=== PATIENT | male | born 1960 | race Caucasian/White ===

== ENCOUNTER 2016-11-20 19:54 | Inpatient (IN) ==
--- NOTE | 2016-11-20 20:09 | Emergency Department Note ---
Disposition Clinical Impression: Suicidal ideation Depression Qualifiers: Depression Type: major depressive disorder Major depression recurrence: recurrent Active/Remission status: currently active Major depression episode severity: unspecified Qualified Code(s): F33.9 - Major depressive disorder, recurrent, unspecified Disposition: Transfer Psychiatric Hosp Condition: Fair Referrals: NO,PCP [Primary Care Provider] - Forms: ED Satisfaction Letter Psych HPI - General Chief Complaint: ED Psychiatric Symptoms Stated Complaint: anxiety Time Seen by Provider: 11/20/16 19:58 Source: patient, EMS Nursing Notes Reviewed: Yes Vital Signs Reviewed: Yes - History of Present Illness HPI Narrative: 56-year-old male presents to the emergency department by ambulance with a complaint that he is just feeling a little anxious. Patient appears slightly agitated. He is very slow to answer questions. He appears to be having hallucinations however he denies any auditory or visual hallucinations. He denies any suicidal or homicidal ideation. He is oriented to person only. He is argumentative that today is the because it is the day after ther . When he was advised that today his accident the he states that I am wrong and he is right how can I even be a doctor if I do not know the date. He denies any physical complaints and just keeps stating that he just feels a little anxious. He apparently has a long history of psychiatric issues. Pt complaint: anxiety If medical clearance, reason: psychiatric condition Onset (ago): unknown History of similar episodes: Yes Associated Psychiatric Symptoms: anxiety Associated symptoms: Reports: denies other symptoms Traumatic symptoms: denies traumatic injury Treatments prior to arrival: none - Related Data Previous Rx's Medication Instructions Recorded Carbamide Peroxide 5 - 10 drop LEFT EAR BID #1 unit 03/11/16 Ibuprofen [Motrin] 600 mg PO Q6-8H PRN #30 tab 03/11/16 Sulfamethoxazole/Trimeth DS 1 each PO BID #20 tablet 03/15/16 [Bactrim Ds] ClonazePAM [Klonopin] 0.5 mg PO BID #60 tablet 05/10/16 RisperiDONE [RisperDAL] 1.5 mg PO BID #90 tablet 05/10/16 Allergies Allergy/AdvReac Type Severity Reaction Status Date / Time No Known Allergies Allergy Verified 05/03/16 12:07 Limitations: ROS unobtainable due to patients medical condition Past Medical History - Past Medical History Medical history: Reports: non-contributory Surgical history: Reports: other Psychiatric history: Reports: anxiety, bipolar, depression, panic disorder - Social History Smoking Status: Never smoker Smokeless Tobacco Status: No Alcohol use: Reports: none Drug use: Reports: cocaine, marijuana Physical Exam - General Limitations: no limitations General appearance: alert, anxious - Head Head exam: atraumatic, normocephalic - Eye Eye exam: Present: normal appearance, PERRL. Absent: scleral icterus, conjunctival injection - ENT ENT exam: normal exam, normal oropharynx, mucous membranes moist - Neck Neck exam: Present: normal inspection, full ROM, trachea midline - Chest Chest inspection: Present: normal inspection, symmetric chest wall rise. Absent : tenderness - Respiratory Respiratory exam: Present: normal lung sounds bilaterally. Absent: respiratory distress - Cardiovascular Cardiovascular exam: Present: regular rate, normal rhythm, normal heart sounds - Abdominal Exam Abdominal exam: Present: soft, Non-Tender, normal bowel sounds - Extremities Exam Extremities exam: Present: normal inspection, full ROM. Absent: tenderness, pedal edema - Back Exam Back exam: Present: normal inspection. Absent: CVA tenderness (R), CVA tenderness (L) - Neurological Exam Neurological exam: Present: alert. Absent: oriented X3 (Oriented to person only.), motor sensory deficit - Psychiatric Psychiatric exam: Present: agitated, anxious, flat affect - Skin Skin exam: Present: warm, dry, intact, normal color. Absent: cyanosis, diaphoresis Course Course Narrative: 56-year-old male with history of psychiatric issues presents complaining of "a lot of anxiety". Denies suicidal or homicidal ideation. He denies hallucinations but clinically appears to be hallucinating. I am giving patient 1 mg of Ativan IV and we will obtain labs for psychiatric clearance and then consult the psychiatry service. - Reevaluation(s) Reevaluation #1: Patient has been seen and evaluated by the [facility] psych service and they are currently working on placement for this patient to be transferred since there are no beds available currently at this facility. Patient was discussed with the oncmarcelo trivedihizulema, Dr. Webster and Dr. Duran , at shift change but charting has been completed and they should not have to have any interaction with this patient unless there is a change in disposition or condition. Vital Signs Temperature 98.7 F 11/20/16 19:57 Pulse Rate 69 11/20/16 19:57 Respiratory Rate 16 11/20/16 19:57 Blood Pressure 139/90 11/20/16 19:57 O2 Sat by Pulse Oximetry 96 11/20/16 19:57 Temperature 98.7 F 11/20/16 19:57 Pulse Rate 76 11/21/16 06:47 Respiratory Rate 18 11/21/16 06:47 Blood Pressure 120/69 11/21/16 06:47 O2 Sat by Pulse Oximetry 96 11/21/16 06:47 Oxygen Delivery Oxygen Delivery Room Air Psych - MDM Narrative Medical decision making narrative: 56-year-old male with history of psychiatric issues presents complaining of "a lot of anxiety". Denies suicidal or homicidal ideation. He denies hallucinations but clinically appears to be hallucinating. I am giving patient 1 mg of Ativan IV and we will obtain labs for psychiatric clearance and then consult the psychiatry service. - Lab Data Result diagrams: 11/20/16 20:35 11/20/16 20:35 Lab Results 11/20/16 11/20/16 11/20/16 Range/Units 20:10 20:11 20:35 WBC 8.4 (4.3-11.1) K/mcL RBC 4.01 L (4.19-5.50) M/mcL Hgb 11.9 L (12.9-16.9) g/dL Hct 36.1 L (37.5-50.1) % MCV 90.0 (83.0-100.0) fL MCH 29.7 (28.0-33.3) pg MCHC 33.0 (31.6-35.5) g/dL RDW 13.1 (11.5-14.5) % Plt Count 314 (140-400) K/mcL MPV 8.7 L (9.4-12.4) fL Immature Gran % 0.4 (0-4) % Seg Neutrophils % 66.2 % Lymphocytes % 23.2 % Monocytes % 8.6 % Eosinophils % 1.2 % Basophils % 0.4 % Neutrophils # 5.6 (1.6-8.9) K/mcL Lymphocytes # 2.0 (0.6-4.6) K/mcL Monocytes # 0.7 (0.0-1.3) K/mcL Eosinophils # 0.1 (0.0-0.6) K/mcL Basophils # 0.0 (0.0-0.2) K/mcL Sodium (136-145) mEq/L Potassium (3.5-4.5) mEq/L Chloride (98-109) mEq/L Carbon Dioxide (19-29) mEq/L BUN (8-26) mg/dL Creatinine (0.72-1.25) mg/dL Est GFR ( Amer) (> 60) Est GFR (Non-Af Amer) (> 60) BUN/Creatinine Ratio (6-26) Glucose (70-99) mg/dL Calculated Osmolality (280-300) Calcium (8.6-10.8) mg/dL TSH (0.350-4.840) mcIU/mL Urine Color Yellow (Yellow) Urine Clarity Clear (Clear) Urine pH 6.0 (5.0-8.0) pH Units Ur Specific [place] 1.008 L (1.010-1.025) Urine Protein Negative (Neg-Trace) mg/dL Urine Glucose (UA) Normal (Normal) mg/dL Urine Ketones Negative (Negative) mg/dL Urine Blood Negative (Negative) Urine Nitrite Negative (Negative) Urine Bilirubin Negative (Negative) Urine Urobilinogen Normal (Normal) mg/dL Ur Leukocyte Esterase Negative (Negative) Salicylates (15-30) mg/dL Urine Opiates Screen Negative (Itrdwm=758) ng/mL Acetaminophen (10-30) mcg/mL Ur Barbiturates Screen Negative (Yegcsb=473) ng/mL Ur Phencyclidine Scrn Negative (Cutoff=25) ng/mL Ur Amphetamines Screen Negative (Plhqtl=5693) ng/mL U Benzodiazepines Scrn Negative (Orpdoh=300) ng/mL Urine Cocaine Screen Negative (Cutoff= 300) ng/mL U Marijuana (THC) Screen Negative (Cutoff = 50) ng/mL Ethyl Alcohol (0-10) mg/dL 11/20/16 Range/Units 20:35 WBC (4.3-11.1) K/mcL RBC (4.19-5.50) M/mcL Hgb (12.9-16.9) g/dL Hct (37.5-50.1) % MCV (83.0-100.0) fL MCH (28.0-33.3) pg MCHC (31.6-35.5) g/dL RDW (11.5-14.5) % Plt Count (140-400) K/mcL MPV (9.4-12.4) fL Immature Gran % (0-4) % Seg Neutrophils % % Lymphocytes % % Monocytes % % Eosinophils % % Basophils % % Neutrophils # (1.6-8.9) K/mcL Lymphocytes # (0.6-4.6) K/mcL Monocytes # (0.0-1.3) K/mcL Eosinophils # (0.0-0.6) K/mcL Basophils # (0.0-0.2) K/mcL Sodium 142 (136-145) mEq/L Potassium 2.4 L* (3.5-4.5) mEq/L Chloride 103 (98-109) mEq/L Carbon Dioxide 29 (19-29) mEq/L BUN 4 L (8-26) mg/dL Creatinine 0.81 (0.72-1.25) mg/dL Est GFR ( Amer) > 60 (> 60) Est GFR (Non-Af Amer) > 60 (> 60) BUN/Creatinine Ratio 5 L (6-26) Glucose 121 H (70-99) mg/dL Calculated Osmolality 292 (280-300) Calcium 9.3 (8.6-10.8) mg/dL TSH 1.729 (0.350-4.840) mcIU/mL Urine Color (Yellow) Urine Clarity (Clear) Urine pH (5.0-8.0) pH Units Ur Specific [place] (1.010-1.025) Urine Protein (Neg-Trace) mg/dL Urine Glucose (UA) (Normal) mg/dL Urine Ketones (Negative) mg/dL Urine Blood (Negative) Urine Nitrite (Negative) Urine Bilirubin (Negative) Urine Urobilinogen (Normal) mg/dL Ur Leukocyte Esterase (Negative) Salicylates < 5.0 L (15-30) mg/dL Urine Opiates Screen (Tktmfa=744) ng/mL Acetaminophen < 1.0 L (10-30) mcg/mL Ur Barbiturates Screen (Vwmjsj=496) ng/mL Ur Phencyclidine Scrn (Cutoff=25) ng/mL Ur Amphetamines Screen (Aschxd=3908) ng/mL U Benzodiazepines Scrn (Smsdlb=191) ng/mL Urine Cocaine Screen (Cutoff= 300) ng/mL U Marijuana (THC) Screen (Cutoff = 50) ng/mL Ethyl Alcohol < 10 (0-10) mg/dL Psychiatric Medical Clearance - Medical Clearance Checklist Does the patient have a NEW psychiatric condition?: No Any abnormalities indicating possible medical illness?: No Any history of medical issues?: No Medical History: No Social History Section defined Any abnormal vital signs prior to transfer?: No Current Vitals: Last Vital Signs Temp 98.7 F 11/20/16 19:57 Pulse 76 11/21/16 06:47 Resp 18 11/21/16 06:47 BP 120/69 11/21/16 06:47 Pulse Ox 96 11/21/16 06:47 Is the patient intoxicated or cognitively impaired?: No Psychiatric Lab Panel: Drug Levels and Toxicity 11/20/16 11/20/16 20:10 20:35 Urine Opiates Screen Negative Acetaminophen < 1.0 L Ur Barbiturates Screen Negative Ur Phencyclidine Scrn Negative Ur Amphetamines Screen Negative U Benzodiazepines Scrn Negative Urine Cocaine Screen Negative U Marijuana (THC) Screen Negative Ethyl Alcohol < 10 Any abnormalities on the physical exam?: No Any abnormal labs?: Yes (Low potassium. Patient was given oral potassium here in the ED.) Abnormal Labs: Abnormal lab results RBC 4.01 M/mcL (4.19-5.50) L 11/20/16 20:35 Hgb 11.9 g/dL (12.9-16.9) L 11/20/16 20:35 Hct 36.1 % (37.5-50.1) L 11/20/16 20:35 MPV 8.7 fL (9.4-12.4) L 11/20/16 20:35 Potassium 2.4 mEq/L (3.5-4.5) L* 11/20/16 20:35 BUN 4 mg/dL (8-26) L 11/20/16 20:35 BUN/Creatinine Ratio 5 (6-26) L 11/20/16 20:35 Glucose 121 mg/dL (70-99) H 11/20/16 20:35 Ur Specific [place] 1.008 (1.010-1.025) L 11/20/16 20:11 Salicylates < 5.0 mg/dL (15-30) L 11/20/16 20:35 Acetaminophen < 1.0 mcg/mL (10-30) L 11/20/16 20:35 Does the patient require durable medical equiptment?: No Is the patient ambulatory?: Yes Is the patient a fall risk?: No Has the patient been medically cleared?: Yes Any acute medical condition require Tx prior to transfer?: No Statement of Medical Clearance: I have evaluated the patient, reviewed diagnostic information, and certify that the patient's medical condition is sufficiently stable that transfer to the psychiatric unit does not pose a significant risk of deterioration.
[2016-11-20 20:18] LABS: Bilirubin,Urine Negative (Negative); Blood,Urine Negative (Negative); Clarity,Urine Clear (Clear); Color,Urine Yellow (Yellow); Glucose,Urine (UA) Normal (Normal); Ketones,Urine Negative (Negative); Leukocyte Esterase,Urine Negative (Negative); Nitrite,Urine Negative (Negative); Protein,Urine Negative (Neg-Trace); Specific Gravity,Urine 1.008 (1.010-1.025); Urobilinogen,Urine Normal (Normal)
[2016-11-20 20:24] LABS: Amphetamine Screen,Urine Negative ng/mL (Cutoff=1000); Barbiturate Screen,Urine Negative ng/mL (Cutoff=200); Benzodiazepines Screen,Urine Negative ng/mL (Cutoff=200); Cannabinoid Screen,Urine Negative ng/mL (Cutoff = 50); Cocaine Screen,Urine Negative ng/mL (Cutoff= 300); Opiate Screen,Urine Negative ng/mL (Cutoff=300); Phencyclidine Screen,Urine Negative ng/mL (Cutoff=25)
[2016-11-20] MEDS ORDERED: *HR* LORazepam 2 MG/ML VIAL ONE (20:39)
[2016-11-20 20:42] LABS: Basophils % 0.4 %; Eosinophils # 0.1 K/mcL (0.0-0.6); Eosinophils % 1.2 %; Hematocrit 36.1 % (37.5-50.1); Hemoglobin 11.9 g/dL (12.9-16.9); Immature Granulocytes % 0.4 % (0-4); Lymphocytes % 23.2 %; Mean Corpuscular Hemoglobin 29.7 pg (28.0-33.3); Mean Platelet Volume 8.7 fL (9.4-12.4); Monocytes # 0.7 K/mcL (0.0-1.3); Monocytes % 8.6 %; Neutrophils # 5.6 K/mcL (1.6-8.9); Platelet Count 314 K/mcL (140-400); Red Blood Count 4.01 M/mcL (4.19-5.50); Red Cell Distribution Width 13.1 % (11.5-14.5); Segmented Neutrophils % 66.2 %
[2016-11-20] MEDS ORDERED: *HR* LORazepam 2 MG/ML VIAL IVP ONE (20:42)
[2016-11-20 20:57] LABS: BUN/Creatinine Ratio 5 (6-26); Calcium 9.3 mg/dL (8.6-10.8); Carbon Dioxide 29 mEq/L (19-29); Chloride 103 mEq/L (98-109); Glucose 121 mg/dL (70-99); Osmolality,Calculated 292 (280-300); Sodium 142 mEq/L (136-145); eGFR For African Americans > 60 (> 60); eGFR For Non-African Americans > 60 (> 60)
[2016-11-20 20:58] LABS: Acetaminophen < 1.0 mcg/mL (10-30); Blood Urea Nitrogen 4 mg/dL (8-26); Ethanol < 10 mg/dL (0-10); Salicylate < 5.0 mg/dL (15-30)
[2016-11-20 21:00] LABS: Potassium 2.4 mEq/L (3.5-4.5)
[2016-11-20 21:17] LABS: Thyroid Stimulating Hormone 1.729 mcIU/mL (0.350-4.840)
[2016-11-21] MEDS ORDERED: *HR* LORazepam 1 MG TABLET PO ONE ×4 (05:01→16:03)
[2016-11-21] MEDS ORDERED: Haloperidol Lactate 5 MG/ML VIAL IM PRN (17:41)
[2016-11-21] MEDS ORDERED: hydrOXYzine pamoate 25 MG CAPSULE PO PRN (17:41)
[2016-11-21] MEDS ORDERED: *HR* LORazepam 2 MG/ML VIAL IM PRN (17:41)
[2016-11-21] MEDS ORDERED: Ibuprofen 400 MG TABLET PO PRN (17:41)
[2016-11-21] MEDS: *HR* LORazepam 1 MG TABLET PO PRN (18:21)
[2016-11-21] MEDS: clonazePAM 0.5 MG TABLET PO SCH (21:40)
--- NOTE | 2016-11-22 06:30 | Electrocardiograph Report ---
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
[2016-11-22] MEDS: clonazePAM 0.5 MG TABLET PO SCH ×2 (09:30→21:02)
--- NOTE | 2016-11-22 11:58 | Psychiatry History & Physical ---
Date of Encounter: 11/21/14 Time of Encounter: 13:00 History of Present Illness Patient Stated Chief Complaint: anxiety Medicare Admission Attestation: For traditional Medicare patients the provided hospital inpatient services are reasonable and necessary and in the case of services not specified as inpatient -only under 42 CFR 419.22 (n), that they are appropriately provided as inpatient services in accordance 42 CFR 412.3. For Critical Access Hospital the patient may reasonably be expected to be discharged or transferred to a hospital within 96 hours after admission to the Critical Access Hospital. Admitted From: Emergency Dept History of Present Illness: Mr. Robert is a 56 year old male with a history of bipolar disorder and cocaine use and an anxiety disorder presented to emergency room was agitation and anxiety and refused to be seen in our interview went for evaluation. Past Med Surg Social Fam HX - Past Medical History Medical history: non-contributory - Past Psychiatric History Psychiatric history: Reports: anxiety, bipolar, previous psychiatric hospitalization Family psychiatric history: Unknown Family History of Suicide: Unknown - Past Surgical History Surgical History: other - Social History Smoking Status: Never smoker Smokeless Tobacco Status: No Alcohol use: none Drug use: cocaine, marijuana Medications & Allergies Carbamide Peroxide 5 - 10 drop LEFT EAR BID #1 unit 03/11/16 [Rx] Ibuprofen [Motrin] 600 mg PO Q6-8H PRN #30 tab 03/11/16 [Rx] Sulfamethoxazole/Trimeth DS [Bactrim Ds] 1 each PO BID #20 tablet 03/15/16 [Rx] ClonazePAM [Klonopin] 0.5 mg PO BID #60 tablet 05/10/16 [Rx] RisperiDONE [RisperDAL] 1.5 mg PO BID #90 tablet 05/10/16 [Rx] Allergies animal dander Allergy (Verified 12/03/16 13:10) Itching pollen extracts Allergy (Verified 12/03/16 13:10) Watery Eye decanoate preparations Adverse Reaction (Severe, Uncoded 12/03/16 11:04) Difficulty Breathing Pt is able to take oral and IM Haldol without difficulty, however the prepartations in the Haldol Decanoate presents an adverse reaction of difficulty in breathing. Review of Systems Psychiatric: Reports: anxiety, irritability Mental Status Exam Additional observations: Patient refused to be interviewed. Intelligence estimate: Average Results - Vital Signs Vital signs: Temp Pulse Resp BP Pulse Ox 98.4 F 88 16 128/82 97 11/21/16 21:00 11/21/16 21:00 11/21/16 21:00 11/21/16 21:00 11/21/16 16:08 - Labs Labs: Laboratory Last Values WBC 8.4 K/mcL (4.3-11.1) 11/20/16 20:35 RBC 4.01 M/mcL (4.19-5.50) L 11/20/16 20:35 Hgb 11.9 g/dL (12.9-16.9) L 11/20/16 20:35 Hct 36.1 % (37.5-50.1) L 11/20/16 20:35 MCV 90.0 fL (83.0-100.0) 11/20/16 20:35 MCH 29.7 pg (28.0-33.3) 11/20/16 20:35 MCHC 33.0 g/dL (31.6-35.5) 11/20/16 20:35 RDW 13.1 % (11.5-14.5) 11/20/16 20:35 Plt Count 314 K/mcL (140-400) 11/20/16 20:35 MPV 8.7 fL (9.4-12.4) L 11/20/16 20:35 Immature Gran % 0.4 % (0-4) 11/20/16 20:35 Seg Neutrophils % 66.2 % 11/20/16 20:35 Lymphocytes % 23.2 % 11/20/16 20:35 Monocytes % 8.6 % 11/20/16 20:35 Eosinophils % 1.2 % 11/20/16 20:35 Basophils % 0.4 % 11/20/16 20:35 Neutrophils # 5.6 K/mcL (1.6-8.9) 11/20/16 20:35 Lymphocytes # 2.0 K/mcL (0.6-4.6) 11/20/16 20:35 Monocytes # 0.7 K/mcL (0.0-1.3) 11/20/16 20:35 Eosinophils # 0.1 K/mcL (0.0-0.6) 11/20/16 20:35 Basophils # 0.0 K/mcL (0.0-0.2) 11/20/16 20:35 Sodium 142 mEq/L (136-145) 11/20/16 20:35 Potassium 2.4 mEq/L (3.5-4.5) L* 11/20/16 20:35 Chloride 103 mEq/L (98-109) 11/20/16 20:35 Carbon Dioxide 29 mEq/L (19-29) 11/20/16 20:35 BUN 4 mg/dL (8-26) L 11/20/16 20:35 Creatinine 0.81 mg/dL (0.72-1.25) 11/20/16 20:35 Est GFR ( Amer) > 60 (> 60) 11/20/16 20:35 Est GFR (Non-Af Amer) > 60 (> 60) 11/20/16 20:35 BUN/Creatinine Ratio 5 (6-26) L 11/20/16 20:35 Glucose 121 mg/dL (70-99) H 11/20/16 20:35 Calculated Osmolality 292 (280-300) 11/20/16 20:35 Calcium 9.3 mg/dL (8.6-10.8) 11/20/16 20:35 TSH 1.729 mcIU/mL (0.350-4.840) 11/20/16 20:35 Urine Color Yellow (Yellow) 11/20/16 20:11 Urine Clarity Clear (Clear) 11/20/16 20:11 Urine pH 6.0 pH Units (5.0-8.0) 11/20/16 20:11 Ur Specific [place] 1.008 (1.010-1.025) L 11/20/16 20:11 Urine Protein Negative mg/dL (Neg-Trace) 11/20/16 20:11 Urine Glucose (UA) Normal mg/dL (Normal) 11/20/16 20:11 Urine Ketones Negative mg/dL (Negative) 11/20/16 20:11 Urine Blood Negative (Negative) 11/20/16 20:11 Urine Nitrite Negative (Negative) 11/20/16 20:11 Urine Bilirubin Negative (Negative) 11/20/16 20:11 Urine Urobilinogen Normal mg/dL (Normal) 11/20/16 20:11 Ur Leukocyte Esterase Negative (Negative) 11/20/16 20:11 Salicylates < 5.0 mg/dL (15-30) L 11/20/16 20:35 Urine Opiates Screen Negative ng/mL (Vywfvz=327) 11/20/16 20:10 Acetaminophen < 1.0 mcg/mL (10-30) L 11/20/16 20:35 Ur Barbiturates Screen Negative ng/mL (Nqsdos=960) 11/20/16 20:10 Ur Phencyclidine Scrn Negative ng/mL (Cutoff=25) 11/20/16 20:10 Ur Amphetamines Screen Negative ng/mL (Xctqog=4337) 11/20/16 20:10 U Benzodiazepines Scrn Negative ng/mL (Txkeuo=504) 11/20/16 20:10 Urine Cocaine Screen Negative ng/mL (Cutoff= 300) 11/20/16 20:10 U Marijuana (THC) Screen Negative ng/mL (Cutoff = 50) 11/20/16 20:10 Ethyl Alcohol < 10 mg/dL (0-10) 11/20/16 20:35 Assessment and Plan (1) Bipolar disorder with psychotic features Current visit: Yes Status: Chronic Plan: Admit inpatient for safety and stabilization, Close observation, Suicide Precautions per unit protocol, Encourage participation in unit milieu, Group Therapy, Monitor sleep, Monitor appetite Risks, benefits, side effects, alternatives discussed w/pt: No (refused) Patient agreeable to treatment: No ( refused)
[2016-11-23] MEDS: clonazePAM 0.5 MG TABLET PO SCH ×2 (09:00→20:26)
[2016-11-23] MEDS: *HR* LORazepam 1 MG TABLET PO PRN ×2 (14:59→19:09)
--- NOTE | 2016-11-23 20:35 | Psychiatry Progress Note ---
Date of Encounter: 11/23/16 Time of Encounter: 14:45 Subjective Interval history: Patient asks me what I want when I approach him. He tells me that he does not think I can help him with his situation, "There are illegal activities going on in this town. People are wired and others are listening in." Tried to discuss with him medications that he has ordered that would help with his mood and paranoia. He is not willing to take any Haldol, but is willing to take Ativan which is warranted to decrease his anxiety and agitation that is putting him at risk of escalating and intrusion into other patients on the unit and aggressive verbal confrontations with staff. I tried to discuss the use of Zyprexa or Seroquel which would help with his agitation and anxiety and also decrease his paranoia and psychosis potentially. He refuses to consider. Review of Systems Psychiatric: Reports: anxiety, abnormal sleep pattern, difficulty concentrating , irritability, mood swings Objective: Exam Patient orientation: Yes Person, Yes Place Level of alertness: Other (He is alert and hypervigilant on the unit. ) Patient appearance: Unkempt, Disheveled, Inappropriate, Bizarre Behavior: anxious, agitated, guarded, suspicious, fearful Psychomotor activity: Agitated Eye contact: Fleeting Contact Mood description: Anxious, Elevated, Irritable Affect description: labile Speech pattern: Rambling, Other (angry tone) Speech volume: Loud Thought process: Tangential, Flight of Ideas, Disorganized Thought content: Yes Ideas of reference, Yes Paranoid delusion Perceptual disturbances: Yes Reacting to internal stimuli (? Denies Auditory Hallucinations) Judgment: Poor Insight: Minimal (Feels he has issues with anxiety and only needs Ativan to help him with his situation) Results - Vital Signs Vital Signs: Temp Pulse Resp BP Pulse Ox 99.1 F 74 24 119/80 97 11/23/16 19:51 11/23/16 19:51 11/23/16 19:51 11/23/16 19:51 11/21/16 16:08 Assessment and Plan (1) Bipolar disorder with psychotic features Current visit: Yes Status: Chronic Plan: Continue hospitalization, Close observation, Monitor sleep, Monitor appetite Risks, benefits, side effects, alternatives discussed w/pt: Yes ( refused) Patient agreeable to treatment: No (refused) Consult Discharge Plan - Plan Referrals: NO,PCP [Primary Care Provider] -
[2016-11-24] MEDS: *HR* LORazepam 1 MG TABLET PO PRN ×2 (03:59→16:01)
[2016-11-24] MEDS: clonazePAM 0.5 MG TABLET PO SCH ×2 (09:25→22:15)
--- NOTE | 2016-11-24 12:30 | Psychiatry Progress Note ---
Date of Encounter: 11/24/16 Time of Encounter: 11:20 Subjective Interval history: Patient was unwilling to speak to me today. He has been taking Ativan PRN, at times on his own and at other times with staff encouragement. He has been observed screaming, yelling and threatening his mother on the phone. Pacing up and down the [place] sporadically. He refused vitals this morning, but came out to eat breakfast. I tried to talk to him about signing in voluntary versus probate paperwork. He would not talk about it. He remained in bed with his head covered by his blanket and did not acknowledge that I was there talking to him. His feet were taping at the edge of the bed the whole time I was in the room. He would not say anything to me. Paperwork is being filed today with the Probate courts for his continued stay and hearing request. He is at the end of his 72 hour involuntary hold and he is not stable to be released. Review of Systems Psychiatric: Reports: anxiety, abnormal sleep pattern, difficulty concentrating , irritability, mood swings Objective: Exam Patient orientation: Yes Person, Yes Place Level of alertness: Other (He is alert and hypervigilant on the unit. ) Patient appearance: Unkempt, Disheveled, Inappropriate, Bizarre Behavior: anxious, agitated, guarded, suspicious, fearful Psychomotor activity: Agitated Eye contact: No Eye Contact Mood description: Anxious, Elevated, Irritable Affect description: labile Speech pattern: Non-verbal Speech volume: No speech Thought process: Tangential, Flight of Ideas, Disorganized Thought content: Yes Ideas of reference, Yes Paranoid delusion Perceptual disturbances: Yes Reacting to internal stimuli (? Denies Auditory Hallucinations) Judgment: Poor Insight: None Results - Vital Signs Vital Signs: Temp Pulse Resp BP Pulse Ox 99.1 F 74 24 119/80 97 11/23/16 19:51 11/23/16 19:51 11/23/16 19:51 11/23/16 19:51 11/21/16 16:08 Assessment and Plan (1) Bipolar disorder with psychotic features Current visit: Yes Status: Chronic Plan: Continue hospitalization, Close observation, Monitor sleep, Monitor appetite Risks, benefits, side effects, alternatives discussed w/pt: Yes ( refused) Patient agreeable to treatment: No (refused) Consult Discharge Plan - Plan Referrals: NO,PCP [Primary Care Provider] -
[2016-11-25] MEDS: clonazePAM 0.5 MG TABLET PO SCH ×2 (10:59→20:20)
--- NOTE | 2016-11-25 11:54 | Psychiatry Progress Note ---
Date of Encounter: 11/25/16 Time of Encounter: 10:20 Subjective Interval history: Patient once again would not talk to me today. He was lying in his bed with his eyes open looking out the window. I continued as a to try and talk to him and asking questions and explain to him about the probate procedure. I encouraged him to take a PRN of Ativan if he needed it which he did not acknowledge or deny needing it, nor did he aknowledge or deny I was in the room. He would not talk to me or verbalize anything. He did not appear to be in any physical distress. Nursing stated they would continue to work with him. He did take a Klonopin last evening for nursing prior to going to bed. I verbalized to him the possibility of trying other medications such as Seroquel or Zyprexa to help with his agitation/anxiety, his mood, his thoughts; reiterating that he could not rely only on Ativan or Klonopin for treatment. His probate court date is set for next Review of Systems Psychiatric: Reports: anxiety, abnormal sleep pattern, difficulty concentrating , irritability, mood swings Objective: Exam Patient orientation: Yes Person, Yes Place Level of alertness: Other (He is alert and hypervigilant on the unit. ) Patient appearance: Disheveled, Inappropriate, Bizarre Behavior: anxious, guarded, suspicious, fearful Psychomotor activity: Normal (currently) Eye contact: No Eye Contact Mood description: Anxious, Irritable Affect description: labile Speech pattern: Non-verbal Speech volume: No speech Thought process: Disorganized, Perseveration Thought content: Yes Preoccupation, Yes Paranoid delusion Perceptual disturbances: Yes Reacting to internal stimuli Judgment: Poor Insight: None Results - Vital Signs Vital Signs: Temp Pulse Resp BP Pulse Ox 99.1 F 54 18 116/55 97 11/23/16 19:51 11/25/16 09:00 11/25/16 09:00 11/25/16 09:00 11/21/16 16:08 Assessment and Plan (1) Bipolar disorder with psychotic features Current visit: Yes Status: Chronic Plan: Continue hospitalization, Close observation, Monitor sleep, Monitor appetite Risks, benefits, side effects, alternatives discussed w/pt: Yes ( refused) Patient agreeable to treatment: No (refused) Consult Discharge Plan - Plan Referrals: NO,PCP [Primary Care Provider] -
[2016-11-25] MEDS: *HR* LORazepam 1 MG TABLET PO PRN ×2 (16:20→19:38)
[2016-11-26] MEDS: *HR* LORazepam 1 MG TABLET PO PRN (08:06)
[2016-11-26] MEDS: clonazePAM 0.5 MG TABLET PO SCH ×2 (09:50→20:49)
--- NOTE | 2016-11-26 11:35 | Psychiatry Progress Note ---
Date of Encounter: 11/26/16 Time of Encounter: 11:30 Subjective Interval history: Patient was in his room in bed when I approached him to come out and talk to me. I knocked on the door, walked in and said his name. He replied "yeah". When he saw it was me, he covered his head back up and refused to respond any further. I asked him if he wanted to talk further about medications. A re- informed him about the fact that he would be going to the probate court to talk to the instrumentation and controls technician regarding continued stay here and medications next week. He refused to comment any further. He has been taking PRN Ativan and some regularly scheduled Klonopin for the past few days. He is not take any Risperdal which was the medications he was maintained and stabilized on previous. He is still irritable with staff and has thrown a cup of water against the wall and spat at the floor after taking medications. He has also made inappropriate sexual comments to the female staff periodically. Additional note: It is reported that his mother was brought to the emergency room last night and that she . He is not currently aware of this. The unit social media marketing manager will be in contact with his brother to see how his brother wants to handle things and will work with the treatment team to decide appropriate action regards to telling him and/or in regards to any arrangements for . At this point time patient is not stable enough and may not fully even comprehend what occurred if you were told in his current elevated and psychotic delusional state. Review of Systems Psychiatric: Reports: anxiety, abnormal sleep pattern, difficulty concentrating , irritability, mood swings Objective: Exam Patient orientation: Yes Person, Yes Place Level of alertness: Other (He is hypervigilant on the unit. ) Patient appearance: Disheveled, Inappropriate, Bizarre Behavior: anxious, guarded, suspicious, fearful Psychomotor activity: Agitated (when out of his room and pacing the halls.) Eye contact: No Eye Contact (today when atttempted to interview him) Mood description: Anxious, Irritable Affect description: labile Speech pattern: Non-verbal Speech volume: No speech Thought process: Disorganized, Perseveration Thought content: Yes Preoccupation, Yes Paranoid delusion Perceptual disturbances: Yes Reacting to internal stimuli Judgment: Poor Insight: None Results - Vital Signs Vital Signs: Temp Pulse Resp BP Pulse Ox 99 F 73 16 109/80 97 11/26/16 08:38 11/26/16 08:38 11/26/16 08:38 11/26/16 08:38 11/21/16 16:08 Assessment and Plan (1) Bipolar disorder with psychotic features Current visit: Yes Status: Chronic Plan: Continue hospitalization, Close observation, Monitor sleep, Monitor appetite Risks, benefits, side effects, alternatives discussed w/pt: Yes ( refused) Patient agreeable to treatment: No (refused) Consult Discharge Plan - Plan Referrals: NO,PCP [Primary Care Provider] -
[2016-11-27] MEDS: clonazePAM 0.5 MG TABLET PO SCH ×2 (10:05→20:30)
[2016-11-27] MEDS ORDERED: risperiDONE 1 MG TABLET PO ONE (12:05)
[2016-11-27] MEDS: *HR* LORazepam 1 MG TABLET PO PRN ×2 (12:14→20:30)
--- NOTE | 2016-11-27 13:19 | Psychiatry Progress Note ---
Date of Encounter: 11/27/16 Time of Encounter: 11:45 Subjective Interval history: Patient tells me "I think I am ready to go home". He was in his room and would not come out to talk initially. He uncovered his head to tell me that. I talked to him about not taking his PRN medication or other medications when offered, he refused to talk to me any further covering his head back up with his blanket. He has friends bringing him in food frozen pizzas and sprite that he has been eating and drinking. After leaving his room, because he would not talk to me, he came out of the room and was pacing the halls. He came up to me and said, "I will take the medication". I asked him what medication he was willing or wanting to take. He told me all take the Risperdal. He states he understands the medication, risk, benefits, side effects, he has been on it before. He denied being suicidal or homicidal. And he would not talk to me about other symptoms of anxiety and paranoia. Risperdal 2 mg was ordered for him now and 2 mg PO QHS routinely. He understands that he has a court hearing next week. He has not been stable enough to disclose to him that his mother . Hopefully, with taking the Risperdal, he will stabilize and will be able to tell him when he can logically understand and help him formulate a plan in regards to discharge and work on getting him a new payee if we need to do so. Review of Systems Psychiatric: Reports: anxiety, abnormal sleep pattern, difficulty concentrating , irritability, mood swings Objective: Exam Patient orientation: Yes Person, Yes Place Level of alertness: Other (He is hypervigilant on the unit. ) Patient appearance: Disheveled, Inappropriate, Bizarre Behavior: anxious, guarded, suspicious, fearful Psychomotor activity: Normal (currently) Eye contact: No Eye Contact Mood description: Anxious, Irritable Affect description: labile Speech pattern: Limited Speech volume: Loud Thought process: Disorganized, Perseveration Thought content: Yes Preoccupation, Yes Paranoid delusion Perceptual disturbances: Yes Reacting to internal stimuli Judgment: Poor Insight: Minimal Results - Vital Signs Vital Signs: Temp Pulse Resp BP Pulse Ox 99.2 F 61 16 121/81 97 11/26/16 20:30 11/26/16 20:30 11/26/16 20:30 11/26/16 20:30 11/21/16 16:08 Assessment and Plan (1) Bipolar disorder with psychotic features Current visit: Yes Status: Chronic Plan: Continue hospitalization, Close observation, Monitor sleep, Monitor appetite Risks, benefits, side effects, alternatives discussed w/pt: Yes ( Agreed to Risperdal today) Patient agreeable to treatment: Yes Consult Discharge Plan - Plan Referrals: NO,PCP [Primary Care Provider] -
[2016-11-27] MEDS: risperiDONE 1 MG TABLET PO SCH (20:30)
[2016-11-28] MEDS: clonazePAM 0.5 MG TABLET PO SCH ×2 (08:37→20:47)
[2016-11-28] MEDS: *HR* LORazepam 1 MG TABLET PO PRN (12:17)
--- NOTE | 2016-11-28 15:54 | Psychiatry Progress Note ---
Date of Encounter: 11/28/16 Time of Encounter: 15:20 Subjective Interval history: Patient was willing to talk to me today and was out sitting on a chair in the unit. He tells me "My behavior has completely changed". He tells me he was previously concerned about being drugged out on the medications and that is why he was refusing to take them. He denies feeling drugged out currently. He states he is not worried about the medications now, "I don't feel that way now ". He tells me that he is thinking clear and is better able to communicate. He states he will continue taking the medication. He denied suicidal or homicidal ideation, he denied auditory or visual hallucinations. I spoke to him about his poor compliance of medications outpatient in the past. I requested and asked him if he was willing to take the Risperdal Consta shot to help with this compliance once he was discharged. He said he did not want to take it at this time, "No, I'll continue taking the pills". Patient is much more engaged on the unit; he is out in the milieu, he is more cooperative with nursing in communication and with medications. He is not being aggressive towards staff; no longer yelling and pacing the halls as he had been before. Note: He is better in cognition and ability to control his mood today. I will meet with treatment team in the morning and discuss telling him about his mother 's . He is now better able to comprehend and deal with the situation. Review of Systems Psychiatric: Reports: anxiety, abnormal sleep pattern, difficulty concentrating , irritability, mood swings Objective: Exam Patient orientation: Yes Person, Yes Time, Yes Place Level of alertness: Sedated (appears more relaxed and sedated today.) Patient appearance: Disheveled (wearing appropaite clothing today, not hospital gown) Behavior: anxious Psychomotor activity: Agitated (Less today) Eye contact: Maintains Eye Contact Mood description: Anxious Affect description: congruent with mood, labile Speech pattern: Normal rate, Normal rhythm, Normal tone, Appropriate Speech volume: No speech Thought process: Goal Oriented (more today), Disorganized (less today), Perseveration Thought content: Yes Preoccupation Judgment: Limited Insight: Minimal Results - Vital Signs Vital Signs: Temp Pulse Resp BP Pulse Ox 99.2 F 61 16 121/81 97 11/26/16 20:30 11/26/16 20:30 11/26/16 20:30 11/26/16 20:30 11/21/16 16:08 Assessment and Plan (1) Bipolar disorder with psychotic features Current visit: Yes Status: Chronic Plan: Continue hospitalization, Close observation, Monitor sleep, Monitor appetite Risks, benefits, side effects, alternatives discussed w/pt: Yes ( Started taking Risperdal 2 mg po two days ago.) Patient agreeable to treatment : No (refused to consider Consta) Consult Discharge Plan - Plan Referrals: NO,PCP [Primary Care Provider] -
[2016-11-28] MEDS: risperiDONE 1 MG TABLET PO SCH (20:47)
[2016-11-29] MEDS: *HR* LORazepam 1 MG TABLET PO PRN ×3 (01:46→12:35)
[2016-11-29] MEDS: clonazePAM 0.5 MG TABLET PO SCH ×2 (08:24→20:53)
--- NOTE | 2016-11-29 12:40 | Psychiatry Progress Note ---
Date of Encounter: 11/29/16 Time of Encounter: 12:15 Subjective Interval history: The patient was willing to sit down and talk today in my office. His paranoia and agitation are greatly decreased with the start of the Risperdal 2 mg po q HS. He has had 3 doses. He tells me today "there been no more outburst since I started taking that medication. I think that is a direct result of taking those pills". I agreed with him and told him he was doing much better and the staff thought he was doing much better also. I discussed with him his compliance and going off the medication in the past and the possibility of taking the IM Risperdal Consta, which he is still opposed to. He is much more Lucent today, less agitated and more intact cognitively. The geriatric social worker and I discussed with him his mom's . The night previously when he called the long term, someone at the long term apparently told him that his mother had . He did not fully acknowledge that at the time and then started calling around to homes in an attempt to confirm that she had . We printed out a copy of her obituary to give to him to talk about her , to make sure he fully understood. He stated "it is my mother. I do not want to discuss it". When we asked him to explain what his understanding was and regards to the situation, he did understand completely that his mother was . He started talking in loose terms about stories that had nothing to do with his mother with the current situation. He was telling stories about animals that he loved, in part of the story saying that it times he might be more concerned about an animal dying than his mother, which may have been his way of processing the situation. He did not tear up and cry. The geriatric social worker told him that his brother might be in town soon and asked if he wanted to see his brother. He was willing to see him. He was mildly concerned about finances and where he would be living, but did not focus on that to any great extent. He did not get agitated; he was controlled in his emotion and asked if he could have an Ativan as a PRN. Review of Systems Psychiatric: Reports: anxiety, abnormal sleep pattern, difficulty concentrating , irritability, mood swings Objective: Exam Patient orientation: Yes Person, Yes Time, Yes Place Level of alertness: Sedated (appears slightly sedated compared to his previous agitation.) Patient appearance: Unkempt Behavior: anxious Psychomotor activity: Agitated (Less today) Eye contact: Maintains Eye Contact Mood description: Anxious Affect description: congruent with mood Speech pattern: Normal rate, Normal rhythm, Normal tone, Appropriate Speech volume: Normal Thought process: Goal Oriented (more today), Loose Associations, Tangential Thought content: Yes Preoccupation Judgment: Limited Insight: Partial Results - Vital Signs Vital Signs: Temp Pulse Resp BP Pulse Ox 98.2 F 80 16 111/80 97 11/29/16 08:51 11/29/16 08:51 11/29/16 08:51 11/29/16 08:51 11/21/16 16:08 Assessment and Plan (1) Bipolar disorder with psychotic features Current visit: Yes Status: Chronic Plan: Continue hospitalization, Close observation, Monitor sleep, Monitor appetite Risks, benefits, side effects, alternatives discussed w/pt: Yes ( Started taking Risperdal 2 mg po q HS) Patient agreeable to treatment: No ( refused to consider Consta) Consult Discharge Plan - Plan Referrals: [facility] [Outside] - 12/10/16 3:00 pm (The above apointment is with Marge Stanley, counselor. You will also see Siomara Ballesteros, psychiatric prescriber, on 12/14/2016 at 4:00 PM.)
[2016-11-29] MEDS: risperiDONE 1 MG TABLET PO SCH (20:53)
[2016-11-30] MEDS: *HR* LORazepam 1 MG TABLET PO PRN ×4 (04:25→17:34)
[2016-11-30] MEDS: clonazePAM 0.5 MG TABLET PO SCH ×2 (08:04→20:59)
--- NOTE | 2016-11-30 09:05 | Psychiatry Progress Note ---
Date of Encounter: 11/30/16 Time of Encounter: 08:55 Subjective Interval history: The patient was willing to talk to me earlier today when I met with him. He stated that he was fine and denied any side effects of the medication. I asked him if he had any questions about the probate court proceedings that are to occur today, and he did not respond. He briefly started talking about a proverb from the Bible that used to be posted on the wall is high school. When I went back to the subject of the probate court hearing he completely stopped talking to me and would not respond to anything else further. Review of Systems Psychiatric: Reports: anxiety, abnormal sleep pattern, difficulty concentrating , irritability, mood swings Objective: Exam Patient orientation: Yes Person, Yes Time, Yes Place Level of alertness: Sedated (appears slightly sedated compared to his previous agitation.) Patient appearance: Disheveled Behavior: calm Psychomotor activity: Slowed Eye contact: Maintains Eye Contact Mood description: Other (blunted, tired) Affect description: congruent with mood Speech pattern: Normal rate, Normal rhythm, Normal tone, Appropriate Speech volume: Normal Thought process: Tangential Thought content: Yes Preoccupation Judgment: Limited Insight: Partial Results - Vital Signs Vital Signs: Temp Pulse Resp BP Pulse Ox 98 F 76 16 115/80 97 11/29/16 20:19 11/29/16 20:19 11/29/16 20:19 11/29/16 20:19 11/21/16 16:08 Assessment and Plan (1) Bipolar disorder with psychotic features Current visit: Yes Status: Chronic Plan: Continue hospitalization, Close observation, Monitor sleep, Monitor appetite Risks, benefits, side effects, alternatives discussed w/pt: Yes ( Started taking Risperdal 2 mg po q HS) Patient agreeable to treatment: No ( refused to consider Consta) Consult Discharge Plan - Plan Referrals: [facility] [Outside] - 12/10/16 3:00 pm (The above apointment is with Marge Stanley, counselor. You will also see Siomara Ballesteros, psychiatric prescriber, on 12/14/2016 at 4:00 PM.)
[2016-11-30] MEDS: risperiDONE 1 MG TABLET PO SCH (20:59)
[2016-11-30] MEDS: traZODone 50 MG TABLET PO PRN (21:54)
[2016-12-01] MEDS: clonazePAM 0.5 MG TABLET PO SCH ×2 (08:20→20:52)
[2016-12-01] MEDS: *HR* LORazepam 1 MG TABLET PO PRN ×3 (09:35→17:55)
--- NOTE | 2016-12-01 13:33 | Psychiatry Progress Note ---
Date of Encounter: 12/01/16 Time of Encounter: 10:30 Subjective Interval history: Patient's probate court hearing was yesterday and he was probated for continued care as well as for force methods if needed. Patient is aware of the ruling and was very angry at me yesterday and aggressive in regards to verbal threats toward me in not allowing me to give him Risperdal Consta as I had discussed with him previously. I tried to meet with the patient to talk with him this morning further. He would not talk to me except to tell me "I do not want shots ". I tried to talk to him about increasing the oral dose of his medications. He would not make eye contact with me, sat with his arms crossed across his chest and got up and walked away. Staff said that he was irritable to rest the day yesterday and appears to have regressed in his progress that he had shown 2 days prior. I am increasing his Risperdal as he was very agitated, loose in associations and tangential yesterday. I am adding a 1 mg dose in the morning in addition to his 2 mg at night. I am also switching them over to M tabs to make sure he has been compliant with the medication; they are rapid dissolving as opposed to the pills that he may be spitting out. Review of Systems Psychiatric: Reports: anxiety, abnormal sleep pattern, difficulty concentrating , irritability, mood swings Objective: Exam Patient orientation: Yes Person, Yes Place Level of alertness: Alert Patient appearance: Disheveled Behavior: anxious, uncooperative Psychomotor activity: Agitated Eye contact: Minimal Contact Mood description: Angry Affect description: constricted Speech pattern: Non-verbal Speech volume: No speech Thought process: Evasive Judgment: Limited Insight: Minimal Results - Vital Signs Vital Signs: Temp Pulse Resp BP Pulse Ox 99.2 F 93 18 136/101 97 11/30/16 20:02 11/30/16 20:02 11/30/16 20:02 11/30/16 20:02 11/21/16 16:08 Assessment and Plan (1) Bipolar disorder with psychotic features Current visit: Yes Status: Chronic Plan: Continue hospitalization, Close observation, Monitor sleep, Monitor appetite Risks, benefits, side effects, alternatives discussed w/pt: Yes ( Risperdal 1 mg po qAM and 2 mg po q HS) Patient agreeable to treatment: No ( Now court ordered for treatment and for forced medications as needed) Consult Discharge Plan - Plan Referrals: [facility] [Outside] - 12/10/16 3:00 pm (The above apointment is with Marge Stanley, counselor. You will also see Siomara Ballesteros, psychiatric prescriber, on 12/14/2016 at 4:00 PM.)
[2016-12-01] MEDS ORDERED: risperiDONE 1 MG TABLET PO ONE (13:42)
[2016-12-01] MEDS: RisperiDONE-M 1 MG TAB.RAPDIS PO SCH (20:52)
[2016-12-02] MEDS: *HR* LORazepam 1 MG TABLET PO PRN ×4 (01:39→16:31)
[2016-12-02] MEDS: clonazePAM 0.5 MG TABLET PO SCH ×2 (08:28→20:09)
[2016-12-02] MEDS: RisperiDONE-M 1 MG TAB.RAPDIS PO SCH ×2 (08:29→20:09)
--- NOTE | 2016-12-02 08:49 | Psychiatry Progress Note ---
Date of Encounter: 12/02/16 Time of Encounter: 08:35 Subjective Interval history: Patient states that he is doing better today. He denies any side effects of the increase of Risperdal. He slept last evening and is less irritable today. He is more logical and linear in his thought today. He tells me he knows he needs to keep taking the medication and says he will. He quotes a philosopher about learning from one's mistakes and growing. He tells me he has allergies, which is true and well substantiated, and in a logical fashion tells me that he believes he is allergic to the oil suspension in the decanoate preparation. He denies SI/HI, A/V hallucination, mind control/reading, paranoia. Review of Systems Psychiatric: Reports: anxiety, abnormal sleep pattern, difficulty concentrating , irritability, mood swings Objective: Exam Patient orientation: Yes Person, Yes Time, Yes Place, Yes Circumstance Level of alertness: Sedated (mildly sedated) Patient appearance: Disheveled Behavior: cooperative, anxious (mildly) Psychomotor activity: Normal Eye contact: Maintains Eye Contact Mood description: Anxious Affect description: congruent with mood Speech pattern: Normal rate, Normal rhythm, Normal tone, Appropriate Speech volume: Normal Thought process: Linear, Goal Oriented Thought content: Yes Intact Judgment: Limited Insight: Partial Results - Vital Signs Vital Signs: Temp Pulse Resp BP Pulse Ox 98.8 F 87 20 130/87 97 12/02/16 08:33 12/02/16 08:33 12/02/16 08:33 12/02/16 08:33 11/21/16 16:08 Assessment and Plan (1) Bipolar disorder with psychotic features Current visit: Yes Status: Chronic Plan: Continue hospitalization, Close observation, Monitor sleep, Monitor appetite Risks, benefits, side effects, alternatives discussed w/pt: Yes ( Risperdal 1 mg po qAM and 2 mg po q HS) Patient agreeable to treatment: No ( Now court ordered for treatment and for forced medications as needed) Consult Discharge Plan - Plan Referrals: [facility] [Outside] - 12/10/16 3:00 pm (The above apointment is with Marge Stanley, counselor. You will also see Siomara Ballesteros, psychiatric prescriber, on 12/14/2016 at 4:00 PM.)
[2016-12-03] MEDS: *HR* LORazepam 1 MG TABLET PO PRN ×2 (03:35→22:12)
[2016-12-03] MEDS: clonazePAM 0.5 MG TABLET PO SCH ×2 (08:25→20:16)
[2016-12-03] MEDS: RisperiDONE-M 1 MG TAB.RAPDIS PO SCH ×2 (08:25→20:16)
[2016-12-03 09:31] VITALS: BP 103/69
--- NOTE | 2016-12-03 09:59 | Psychiatry Progress Note ---
Date of Encounter: 12/03/16 Time of Encounter: 09:40 Subjective Interval history: I approach the patient as he was standing in the hallway and asked him if he was willing to meet with me today. He stated back to me "I don't know that there is anything we need to talk about". I explained to him said them that we needed to talk about modifying his medications a little bit more in regards to decreasing the Ativan usage, trying to utilize other PRN's. He replied back to me "Then we have nothing to talk about and I am not talking to you". Patient has been making inappropriate comments to nursing staff in a sexual manner at times. He is angry about being court ordered on his medications. He is angry about the dose of Risperdal being increased 2 days ago. He has been visibly more agitated again on the unit. I am concerned that he might be having some akathisia from the Risperdal. Nursing staff has been encouraged to give him cogentin or Benadryl. He refused it yesterday if he could not have not Ativan with it. Ativan is being decreased in frequency of dose as he is being increased in his dose of Klonopin, which is a little longer acting benzodiazepine to 1 mg BID. Nursing staff is utilizing Cogentin or Benadryl when he requests a prn. Review of Systems Psychiatric: Reports: anxiety, abnormal sleep pattern, difficulty concentrating , irritability, mood swings Objective: Exam Patient orientation: Yes Person, Yes Time, Yes Place, Yes Circumstance Level of alertness: Sedated (mildly sedated) Patient appearance: Disheveled Behavior: anxious (mildly), guarded Psychomotor activity: Agitated (mild) Eye contact: Maintains Eye Contact Mood description: Anxious, Irritable Affect description: anxious Speech pattern: Normal rate, Normal rhythm, Normal tone, Appropriate Speech volume: Normal Thought process: Evasive Thought content: Yes Intact Judgment: Limited Insight: Minimal Results - Vital Signs Vital Signs: Temp Pulse Resp BP Pulse Ox 98.8 F 80 12 103/69 97 12/03/16 09:00 12/03/16 09:00 12/03/16 09:00 12/03/16 09:00 11/21/16 16:08 Assessment and Plan (1) Bipolar disorder with psychotic features Current visit: Yes Status: Chronic Plan: Continue hospitalization, Close observation, Monitor sleep, Monitor appetite Risks, benefits, side effects, alternatives discussed w/pt: Yes ( Risperdal 1 mg po qAM and 2 mg po q HS. Tapering ativan, increase Klonopin) Patient agreeable to treatment: No (Now court ordered for treatment and for forced medications as needed) Consult Discharge Plan - Plan Referrals: [facility] [Outside] - 12/10/16 3:00 pm (The above apointment is with Marge Stanley, counselor. You will also see Siomara Ballesteros, psychiatric prescriber, on 12/14/2016 at 4:00 PM.)
[2016-12-04] MEDS: clonazePAM 0.5 MG TABLET PO SCH ×2 (08:19→20:21)
[2016-12-04] MEDS: RisperiDONE-M 1 MG TAB.RAPDIS PO SCH ×2 (08:19→20:21)
[2016-12-04] MEDS: *HR* LORazepam 1 MG TABLET PO PRN ×2 (08:23→14:48)
--- NOTE | 2016-12-04 12:32 | Psychiatry Progress Note ---
Date of Encounter: 12/04/16 Time of Encounter: 12:30 Subjective Interval history: Patient seen and interviewed. History and physical examination reviewed. Patient appeared more calm and controlled and cooperative today. Behavior is not irritable or agitated today. Patient is focused on getting Ativan he was told that we will continue to decrease the dose and eventually would like to taper it. He was agreeable on decreasing it to every 6 hours when necessary. Patient is withdrawn and keeping it to himself not communicating or interacting with peers or staff. Not attending groups. Patient is currently denying any overt psychotic symptoms. He is adamantly refusing to take injection Risperdal. However patient does compliant with his medication and taking oral Risperdal. Review of Systems Psychiatric: Reports: anxiety, abnormal sleep pattern, difficulty concentrating , irritability, mood swings Objective: Exam Patient orientation: Yes Person, Yes Time, Yes Place, Yes Circumstance Level of alertness: Alert Patient appearance: Disheveled Behavior: anxious (mildly), guarded Psychomotor activity: Normal Eye contact: Maintains Eye Contact Mood description: Anxious, Irritable Affect description: anxious Speech pattern: Normal rate, Normal rhythm, Normal tone, Appropriate Speech volume: Normal Thought process: Evasive Thought content: Yes Intact Perceptual disturbances: Yes Reacting to internal stimuli Judgment: Limited Insight: Minimal Results - Vital Signs Vital Signs: Temp Pulse Resp BP Pulse Ox 98.8 F 80 12 103/69 97 12/03/16 09:00 12/03/16 09:00 12/03/16 09:00 12/03/16 09:00 11/21/16 16:08 Assessment and Plan (1) Bipolar disorder with psychotic features Current visit: Yes Status: Chronic Plan: Continue hospitalization, Close observation, Monitor sleep, Monitor appetite Risks, benefits, side effects, alternatives discussed w/pt: Yes ( Risperdal 1 mg po qAM and 2 mg po q HS. Tapering ativan, increase Klonopin) Patient agreeable to treatment: No (Now court ordered for treatment and for forced medications as needed) (2) Cocaine use disorder, moderate, dependence Current visit: No Status: Chronic Plan: Continue hospitalization, Close observation, Suicide Precautions per unit protocol, Encourage participation in unit milieu, Group Therapy, Monitor sleep, Monitor appetite Risks, benefits, side effects, alternatives discussed w/pt: Yes Patient agreeable to treatment: Yes Consult Discharge Plan - Plan Referrals: [facility] [Outside] - 12/10/16 3:00 pm (The above apointment is with Marge Stanley, counselor. You will also see Siomara Ballesteros, psychiatric prescriber, on 12/14/2016 at 4:00 PM.)
[2016-12-05] MEDS: *HR* LORazepam 1 MG TABLET PO PRN ×2 (08:05→15:13)
[2016-12-05] MEDS: RisperiDONE-M 1 MG TAB.RAPDIS PO SCH ×2 (08:05→20:23)
[2016-12-05] MEDS: clonazePAM 0.5 MG TABLET PO SCH ×2 (08:05→20:23)
--- NOTE | 2016-12-05 10:33 | Psychiatry Progress Note ---
Date of Encounter: 12/05/16 Time of Encounter: 09:50 Subjective Interval history: Patient seen and interviewed. Continue to make progress. Behavior remained controlled and compliant. The patient is tolerating the decrease in Ativan fairly well and does not argumentative about it. We will further decreased to every 8 hours when necessary patient is agreeable with this decrease. Patient was explained that he will not be discharged on Ativan and he is fine with not going home on Ativan. He is tolerating anxiety fairly well. He denies any overt psychotic or manic symptoms. He denies any suicidal homicidal ideations. He is looking forward to getting discharged tomorrow. Overall patient is making progress. Review of Systems Psychiatric: Reports: anxiety Objective: Exam Patient orientation: Yes Person, Yes Time, Yes Place, Yes Circumstance Level of alertness: Alert Patient appearance: Disheveled Behavior: anxious, guarded Psychomotor activity: Normal Eye contact: Maintains Eye Contact Mood description: Anxious Affect description: anxious Speech pattern: Normal rate, Normal rhythm, Normal tone, Appropriate Speech volume: Normal Thought process: Evasive Thought content: Yes Intact, No Suicidal ideation, No Homicidal ideation, No Overt delusions Perceptual disturbances: No Auditory hallucinations, No Visual hallucinations Judgment: Limited Insight: Minimal Results - Vital Signs Vital Signs: Temp Pulse Resp BP Pulse Ox 98.8 F 80 12 103/69 97 12/03/16 09:00 12/03/16 09:00 12/03/16 09:00 12/03/16 09:00 11/21/16 16:08 Assessment and Plan (1) Bipolar disorder with psychotic features Current visit: Yes Status: Chronic Plan: Continue hospitalization, Close observation, Suicide Precautions per unit protocol, Encourage participation in unit milieu, Group Therapy, Monitor sleep, Monitor appetite Additional Plan: Continue to decrease Ativan. Possible discharge tomorrow Risks, benefits, side effects, alternatives discussed w/pt: Yes (Risperdal 1 mg po qAM and 2 mg po q HS. Tapering ativan, increase Klonopin) Patient agreeable to treatment: No (Now court ordered for treatment and for forced medications as needed) (2) Cocaine use disorder, moderate, dependence Current visit: No Status: Chronic Plan: Continue hospitalization, Close observation, Suicide Precautions per unit protocol, Encourage participation in unit milieu, Group Therapy, Monitor sleep, Monitor appetite Risks, benefits, side effects, alternatives discussed w/pt: Yes Patient agreeable to treatment: Yes Consult Discharge Plan - Plan Referrals: [facility] [Outside] - 12/10/16 3:00 pm (The above apointment is with Marge Stanley, counselor. You will also see Siomara Ballesteros, psychiatric prescriber, on 12/14/2016 at 4:00 PM.)
[2016-12-06] MEDS: RisperiDONE-M 1 MG TAB.RAPDIS PO SCH ×2 (08:02→20:56)
[2016-12-06] MEDS: clonazePAM 0.5 MG TABLET PO SCH ×2 (08:02→20:56)
[2016-12-06] MEDS: *HR* LORazepam 1 MG TABLET PO PRN ×2 (11:18→19:13)
--- NOTE | 2016-12-06 15:44 | Psychiatry Progress Note ---
Date of Encounter: 12/07/16 Time of Encounter: 15:10 Subjective Interval history: Patient is here for follow-up. Nursing staff report he continued delusional paranoid and disorganized. He yells and scream at time but he is accepting medication. Seen in his room is disheveled with increased psychomotor activity , disorganized speech and delusional content. Denies any problem with sleep and denies suicidal ideation. Review of Systems Psychiatric: Reports: anxiety, auditory hallucinations, visual hallucinations, confusion, irritability Objective: Exam Patient orientation: Yes Person Level of alertness: Alert, Other Patient appearance: Unkempt, Disheveled, Bizarre, Mal-nourished Behavior: anxious, agitated, restless, guarded, distractible, talkative Psychomotor activity: Increased Eye contact: Fleeting Contact Mood description: Expansive, Labile, Irritable Affect description: labile, anxious Speech pattern: Disorganized, Inappropriate to situation, Rambling, Pressured Speech volume: Loud Thought process: Circumstantial, Loose Associations, Flight of Ideas, Evasive Thought content: No Suicidal ideation, No Homicidal ideation, Yes Overt delusions, Yes Ideas of reference, Yes Preoccupation, Yes Paranoid delusion Perceptual disturbances: Yes Reacting to internal stimuli, Yes Auditory hallucinations, Yes Visual hallucinations Judgment: Poor Insight: None Results - Vital Signs Vital Signs: Temp Pulse Resp BP Pulse Ox 98.8 F 80 12 103/69 97 12/03/16 09:00 12/03/16 09:00 12/03/16 09:00 12/03/16 09:00 11/21/16 16:08 Assessment and Plan (1) Bipolar disorder with psychotic features Current visit: Yes Status: Chronic Plan: Continue hospitalization, Close observation, Suicide Precautions per unit protocol, Encourage participation in unit milieu, Group Therapy, Monitor sleep, Monitor appetite Risks, benefits, side effects, alternatives discussed w/pt: Yes (refused) Patient agreeable to treatment: Yes (refused) (2) Affective psychosis, bipolar Current visit: Yes Status: Acute Risks, benefits, side effects, alternatives discussed w/pt: Yes Patient agreeable to treatment: Yes Qualifiers: Current bipolar episode type: manic Consult Discharge Plan - Plan Referrals: [facility] [Outside] - 12/10/16 3:00 pm (The above apointment is with Marge Stanley, counselor. You will also see Siomara Lesli, psychiatric prescriber, on 12/14/2016 at 4:00 PM.)
[2016-12-06] MEDS: traZODone 50 MG TABLET PO PRN (20:56)
[2016-12-07] MEDS: clonazePAM 0.5 MG TABLET PO SCH ×2 (09:03→20:21)
[2016-12-07] MEDS: RisperiDONE-M 1 MG TAB.RAPDIS PO SCH ×2 (09:03→20:25)
--- NOTE | 2016-12-07 14:40 | Psychiatry Progress Note ---
Date of Encounter: 12/07/16 Time of Encounter: 14:36 Subjective Interval history: Patient is here for follow-up. Nursing staff reports he continues to be disorganized, delusional and disruptive at times. He was seen laughing to himself and talking to himself loudly. His speech can be incoherent and disorganized. He refuse vital signs. Appetite and sleep are improving. Denies suicidal ideation and denies homicidal ideation. He is still psychotic and paranoid. Review of Systems Psychiatric: Reports: anxiety, auditory hallucinations, visual hallucinations, confusion, irritability Objective: Exam Patient orientation: Yes Person Level of alertness: Alert, Other Patient appearance: Unkempt, Disheveled, Bizarre, Mal-nourished Behavior: anxious, agitated, restless, guarded, distractible, talkative Psychomotor activity: Increased Eye contact: Fleeting Contact Mood description: Expansive, Labile, Irritable Affect description: labile, anxious Speech pattern: Disorganized, Inappropriate to situation, Rambling, Pressured Speech volume: Loud Thought process: Circumstantial, Loose Associations, Flight of Ideas, Evasive Thought content: No Suicidal ideation, No Homicidal ideation, Yes Overt delusions, Yes Ideas of reference, Yes Preoccupation, Yes Paranoid delusion Perceptual disturbances: Yes Reacting to internal stimuli, Yes Auditory hallucinations, Yes Visual hallucinations Judgment: Poor Insight: None Results - Vital Signs Vital Signs: Temp Pulse Resp BP Pulse Ox 98.8 F 80 12 103/69 97 12/03/16 09:00 12/03/16 09:00 12/03/16 09:00 12/03/16 09:00 11/21/16 16:08 Assessment and Plan (1) Bipolar disorder with psychotic features Current visit: Yes Status: Chronic Plan: Continue hospitalization, Close observation, Suicide Precautions per unit protocol, Encourage participation in unit milieu, Group Therapy, Monitor sleep, Monitor appetite Risks, benefits, side effects, alternatives discussed w/pt: Yes (refused) Patient agreeable to treatment: Yes (refused) (2) Affective psychosis, bipolar Current visit: Yes Status: Acute Plan: Continue hospitalization, Close observation, Suicide Precautions per unit protocol, Encourage participation in unit milieu, Group Therapy, Monitor sleep, Monitor appetite Risks, benefits, side effects, alternatives discussed w/pt: Yes Patient agreeable to treatment: Yes Qualifiers: Current bipolar episode type: manic Consult Discharge Plan - Plan Referrals: [facility] [Outside] - 12/10/16 3:00 pm (The above apointment is with Marge Stanley, counselor. You will also see Siomara Ballesteros, psychiatric prescriber, on 12/14/2016 at 4:00 PM.)
[2016-12-08] MEDS: *HR* LORazepam 1 MG TABLET PO PRN ×3 (04:29→20:42)
[2016-12-08] MEDS: clonazePAM 0.5 MG TABLET PO SCH ×2 (08:39→20:30)
[2016-12-08] MEDS: RisperiDONE-M 1 MG TAB.RAPDIS PO SCH ×2 (08:39→20:37)
--- NOTE | 2016-12-08 14:57 | Psychiatry Progress Note ---
Date of Encounter: 12/08/16 Time of Encounter: 14:53 Subjective Interval history: Patient is seen for follow-up and was discussed with the treatment team. His behavior is more manageable, less agitated, more cooperative. He continues to talk to himself at times. He is not combative or threatening. His sleep and appetite improving. His ADLs are improving. He is not suicidal or homicidal. She is anxious to be discharged. printing table worker is working hard to accomplish discharge plans as soon as possible. Review of Systems Psychiatric: Reports: anxiety, auditory hallucinations, visual hallucinations, irritability. Denies: suicidal ideation, homicidal ideation Objective: Exam Patient orientation: Yes Person, Yes Place Level of alertness: Alert, Other Patient appearance: Well Groomed, Bizarre, Mal-nourished Behavior: anxious, agitated, restless, distractible, talkative Psychomotor activity: Increased Eye contact: Fleeting Contact Mood description: Expansive, Labile, Irritable Affect description: labile, anxious Speech pattern: Appropriate, Rambling, Pressured Speech volume: Loud Thought process: Circumstantial, Loose Associations, Flight of Ideas, Perseveration Thought content: No Suicidal ideation, No Homicidal ideation, Yes Overt delusions, Yes Ideas of reference, Yes Preoccupation, Yes Paranoid delusion Perceptual disturbances: Yes Reacting to internal stimuli, Yes Auditory hallucinations, Yes Visual hallucinations Judgment: Poor Insight: None Results - Vital Signs Vital Signs: Temp Pulse Resp BP Pulse Ox 98.8 F 80 12 103/69 97 12/03/16 09:00 12/03/16 09:00 12/03/16 09:00 12/03/16 09:00 11/21/16 16:08 Assessment and Plan (1) Bipolar disorder with psychotic features Current visit: Yes Status: Chronic Plan: Continue hospitalization, Close observation, Suicide Precautions per unit protocol, Encourage participation in unit milieu, Group Therapy, Monitor sleep, Monitor appetite Risks, benefits, side effects, alternatives discussed w/pt: Yes (refused) Patient agreeable to treatment: Yes (refused) (2) Affective psychosis, bipolar Current visit: Yes Status: Acute Plan: Continue hospitalization, Close observation, Suicide Precautions per unit protocol, Encourage participation in unit milieu, Group Therapy, Monitor sleep, Monitor appetite Risks, benefits, side effects, alternatives discussed w/pt: Yes Patient agreeable to treatment: Yes Qualifiers: Current bipolar episode type: manic Consult Discharge Plan - Plan Referrals: [facility] [Outside] - 12/10/16 3:00 pm (The above apointment is with Marge Stanley, counselor. You will also see Siomara Ballesteros, psychiatric prescriber, on 12/14/2016 at 4:00 PM.)
[2016-12-09] MEDS: *HR* LORazepam 1 MG TABLET PO PRN ×2 (08:47→22:46)
[2016-12-09] MEDS: clonazePAM 0.5 MG TABLET PO SCH ×2 (08:48→20:14)
[2016-12-09] MEDS: RisperiDONE-M 1 MG TAB.RAPDIS PO SCH ×2 (08:49→20:14)
--- NOTE | 2016-12-09 14:10 | Psychiatry Progress Note ---
Date of Encounter: 12/09/16 Time of Encounter: 14:08 Subjective Interval history: Patient's follow-up. Nursing staff report is able to maintain conversation he is not agitated or threatening compliant with medication and his ADLs continue to be poor. He denies any suicidal or homicidal ideation. floor worker well service is making arrangement for outpatient to be discharged tomorrow and have an evaluation of competency to stand trial as per her notes. Patient reached maximum benefits from hospitalization at this time. Review of Systems Psychiatric: Reports: anxiety, mood swings. Denies: suicidal ideation, homicidal ideation Objective: Exam Patient orientation: Yes Person, Yes Place Level of alertness: Alert, Other Patient appearance: Appropriate, Unkempt, Bizarre, Mal-nourished Behavior: cooperative, anxious, restless, distractible, talkative Psychomotor activity: Increased Eye contact: Fleeting Contact Mood description: Expansive, Labile Affect description: labile, anxious Speech pattern: Appropriate, Rambling, Pressured Speech volume: Loud Thought process: Circumstantial, Loose Associations, Flight of Ideas, Perseveration Thought content: No Suicidal ideation, No Homicidal ideation, Yes Overt delusions, Yes Ideas of reference, Yes Preoccupation, Yes Paranoid delusion Perceptual disturbances: Yes Reacting to internal stimuli, Yes Auditory hallucinations, Yes Visual hallucinations Judgment: Poor Insight: None Results - Vital Signs Vital Signs: Temp Pulse Resp BP Pulse Ox 98.8 F 80 12 103/69 97 12/03/16 09:00 12/03/16 09:00 12/03/16 09:00 12/03/16 09:00 11/21/16 16:08 Assessment and Plan (1) Bipolar disorder with psychotic features Current visit: Yes Status: Chronic Plan: Continue hospitalization, Close observation, Suicide Precautions per unit protocol, Encourage participation in unit milieu, Group Therapy, Monitor sleep, Monitor appetite Risks, benefits, side effects, alternatives discussed w/pt: Yes (refused) Patient agreeable to treatment: Yes (refused) (2) Affective psychosis, bipolar Current visit: Yes Status: Acute Plan: Continue hospitalization, Close observation, Suicide Precautions per unit protocol, Encourage participation in unit milieu, Group Therapy, Monitor sleep, Monitor appetite Risks, benefits, side effects, alternatives discussed w/pt: Yes Patient agreeable to treatment: Yes Qualifiers: Current bipolar episode type: manic Consult Discharge Plan - Plan Referrals: [facility] [Outside] - 12/10/16 3:00 pm (The above apointment is with Marge Stanley, counselor. You will also see Siomara Ballesteros, psychiatric prescriber, on 12/14/2016 at 4:00 PM.)
[2016-12-10] MEDS: traZODone 50 MG TABLET PO PRN (01:04)
[2016-12-10] MEDS: RisperiDONE-M 1 MG TAB.RAPDIS PO SCH (08:13)
[2016-12-10] MEDS: *HR* LORazepam 1 MG TABLET PO PRN (08:13)
[2016-12-10] MEDS: clonazePAM 0.5 MG TABLET PO SCH (08:13)
--- NOTE | 2016-12-10 11:12 | Discharge Summary ---
Date of Encounter: 12/10/16 Time of Encounter: 11:02 Diagnosis - Discharge Diagnosis (1) Bipolar disorder with psychotic features Priority: Primary Status: Chronic (2) Affective psychosis, bipolar Priority: Secondary Status: Acute Qualifiers: Active/Remission status: currently active Current bipolar episode type: manic Current episode severity: severe Qualified Code(s): F31.2 - Bipolar disorder, current episode manic severe with psychotic features Medications - Discharge Medications Prescriptions: RisperiDONE-M [RisperDAL M-TAB] 1 mg PO DAILY #30 tab.rapdis RisperiDONE-M [RisperDAL M-TAB] 2 mg PO HS #30 tab.rapdis ClonazePAM [Klonopin] 0.5 mg PO BID #60 tablet 05/10/16 [Rx] Disulfiram [Antabuse] 125 mg PO DAILY 12/08/16 [History] RisperiDONE-M [RisperDAL M-TAB] 1 mg PO DAILY #30 tab.rapdis 12/10/16 [Rx] RisperiDONE-M [RisperDAL M-TAB] 2 mg PO HS #30 tab.rapdis 12/10/16 [Rx] Allergies animal dander Allergy (Verified 12/03/16 13:10) Itching pollen extracts Allergy (Verified 12/03/16 13:10) Watery Eye decanoate preparations Adverse Reaction (Severe, Uncoded 12/03/16 11:04) Difficulty Breathing Pt is able to take oral and IM Haldol without difficulty, however the prepartations in the Haldol Decanoate presents an adverse reaction of difficulty in breathing. Provider Date of admission: 11/21/16 17:17 Primary care physician: PCP NO Discharging clinician: Christian Hampton Assessment and Plan - Patient/Caregiver Discharge Instructions Activity: resume usual activities as tolerated Diet: regular diet - Follow up Plan Follow up with: [facility] [Outside] - 12/10/16 3:00 pm (The above apointment is with Marge Stanley, counselor. You will also see Siomara Ballesteros, psychiatric prescriber, on 12/14/2016 at 4:00 PM.) Functional capacity at discharge: independent ambulation Overall status at discharge: Stable Disposition: Transfer LT Hospital Course Hospital course: Mr. Robert is a 56 year old male admitted for says her vision of bipolar disorder with psychotic features was agitation and delusions suicidal ideation and so neglect with poor ADLs and inability to care for himself. For details of the admission please see H&P in system On the unit the patient was kept on medication as per records he initially was uncooperative and refusing medication and refusing interaction was staff later on became more cooperative and compliant with medication he was displaying agitation episodes at times he was delusional talking loud with himself and laughing. Patient behavior improved she became much more cooperative and calm in his appetite and sleep improved ADLs improved he denies suicidal ideation or homicidal ideation and he was anxious to be discharged. Discharge plan completed and social science research assistant communicated his needs to community agencies. Prior to discharge patient was medically stable mood and affect are stable and he was not delusional and he denied any suicidal or homicidal ideation and compliant with medication. - Time Spent with Patient Total time spent providing and/or coordinating discharge services: Less than 30 minutes Quality - Multiple Antipsychotics Patient discharged on 2 or more antipsychotic medications: No Procedures - Procedures Procedures: Medication Management, Crisis Stabilization, Supportive Therapy, Group Therapy, Psychoeducational Therapy Mental Status Exam - Mental Status Exam Patient orientation: Yes Person, Yes Place Level of alertness: Alert, Other Patient appearance: Appropriate, Well Groomed, Bizarre Behavior: calm, cooperative, anxious, restless, distractible, talkative Psychomotor activity: Normal Eye contact: Maintains Eye Contact Mood description: Euthymic/stable, Expansive, Labile Affect description: congruent with mood, anxious Speech pattern: Normal rate, Normal rhythm, Appropriate, Limited, Pressured Speech Volume: Normal, Loud Thought process: Intact, Logical, Goal Oriented, Circumstantial Thought Content: No Suicidal ideation, No Homicidal ideation, Yes Paranoid delusion Perceptual Disturbances: No Auditory hallucinations, No Visual hallucinations Judgment: Limited Insight: Minimal
== END 2016-12-10 14:25 | DRG 885 ==
LOC: EMEROO 19:54 → 1ANU 11-21 17:17 → SUATTDRO 11-21 17:17 → 1ANU 11-21 17:30
PROVIDERS: ADMIT Psychiatry & Neurology Psychiatry; ATTEND Psychiatry & Neurology Psychiatry

== ENCOUNTER 2020-05-12 10:04 | Inpatient (IN) ==
[2020-05-12 10:53] LABS: Basophils % 0.5 %; Eosinophils # 0.1 K/mcL (0.0-0.6); Eosinophils % 1.5 %; Hematocrit 41.2 % (37.5-50.1); Hemoglobin 13.3 g/dL (12.9-16.9); Immature Granulocytes % 0.4 % (0-4); Lymphocytes # 1.3 K/mcL (0.6-4.6); Lymphocytes % 18.2 %; Mean Corpuscular HGB Conc 32.3 g/dL (31.6-35.5); Mean Corpuscular Hemoglobin 29.7 pg (28.0-33.3); Monocytes # 0.6 K/mcL (0.0-1.3); Monocytes % 8.4 %; Neutrophils # 5.2 K/mcL (1.6-8.9); Platelet Count 284 K/mcL (140-400); Red Blood Count 4.48 M/mcL (4.19-5.50); Red Cell Distribution Width 12.9 % (11.5-14.5); White Blood Count 7.3 K/mcL (4.3-11.1)
[2020-05-12 11:11] LABS: Bilirubin,Urine Negative (Negative); Blood,Urine Negative (Negative); Clarity,Urine Clear (Clear); Color,Urine Light-Yellow (Yellow); Glucose,Urine (UA) Normal (Normal); Ketones,Urine Negative (Negative); Leukocyte Esterase,Urine Negative (Negative); Nitrite,Urine Negative (Negative); PH,Urine 5.5 pH Units (5.0-8.0); Protein,Urine Negative (Neg-Trace); Specific Gravity,Urine 1.018 (1.010-1.025); Urobilinogen,Urine Normal (Normal)
[2020-05-12 11:13] LABS: Acetaminophen < 10 mcg/mL (10-20); BUN/Creatinine Ratio 16 (6-26); Blood Urea Nitrogen 13 mg/dL (6-20); Calcium 8.5 mg/dL (8.6-10.3); Carbon Dioxide 26 mEq/L (23-29); Chloride 104 mEq/L (98-107); Ethanol < 10 mg/dL (Less than 10); Glucose 109 mg/dL (70-105); Osmolality,Calculated 281 (280-300); Potassium 3.9 mEq/L (3.5-5.1); Salicylate < 2.5 mg/dL (15.0-30.0); Sodium 135 mEq/L (136-145); eGFR For African Americans > 60 (> 60); eGFR For Non-African Americans > 60 (> 60)
[2020-05-12 11:25] LABS: Amphetamine Screen,Urine Negative ng/mL (Cutoff=1000); Barbiturate Screen,Urine Negative ng/mL (Cutoff=200); Benzodiazepines Screen,Urine Negative ng/mL (Cutoff=200); Cannabinoid Screen,Urine Negative ng/mL (Cutoff = 50); Cocaine Screen,Urine Negative ng/mL (Cutoff= 300); Opiate Screen,Urine Negative ng/mL (Cutoff=300); Phencyclidine Screen,Urine Negative ng/mL (Cutoff=25)
[2020-05-12] MEDS ORDERED: *HR* LORazepam 2 MG/ML VIAL IM PRN (13:03)
[2020-05-12] MEDS ORDERED: hydrOXYzine pamoate 25 MG CAPSULE PO PRN (13:03)
[2020-05-12] MEDS ORDERED: MOM Conc 10 ML UD.LIQ PO PRN (13:03)
[2020-05-12] MEDS ORDERED: *HR* LORazepam 1 MG TABLET PO PRN (13:03)
[2020-05-12] MEDS ORDERED: QUEtiapine Fumarate 25 MG TABLET PO PRN (13:03)
[2020-05-12] MEDS ORDERED: Mag Hydrox/Al Hydrox/Simeth 30 ML UDC PO PRN (13:03)
[2020-05-12] MEDS ORDERED: Acetaminophen 325 MG TABLET PO PRN (13:03)
[2020-05-12] MEDS ORDERED: Haloperidol Lactate 5 MG/ML VIAL IM PRN (13:03)
[2020-05-12] MEDS ORDERED: RisperiDAL 3 MG TABLET PO SCH (21:00)
[2020-05-13] MEDS ORDERED: *HR* LORazepam 1 MG TABLET PO ONE (11:33)
[2020-05-13] MEDS: RisperiDONE-M 1 MG TAB.RAPDIS PO SCH (21:46)
[2020-05-14] MEDS: RisperiDONE-M 1 MG TAB.RAPDIS PO SCH ×2 (12:44→21:01)
[2020-05-15] MEDS: RisperiDONE-M 1 MG TAB.RAPDIS PO SCH ×2 (15:41→21:30)
[2020-05-17] MEDS: RisperiDONE-M 1 MG TAB.RAPDIS PO SCH ×2 (02:19→22:46)
[2020-05-18] MEDS: RisperiDONE-M 1 MG TAB.RAPDIS PO SCH (21:47)
[2020-05-19] MEDS: RisperiDONE-M 1 MG TAB.RAPDIS PO SCH (21:23)
[2020-05-21] MEDS: RisperiDONE-M 1 MG TAB.RAPDIS PO SCH ×2 (01:15→21:23)
[2020-05-22] MEDS ORDERED: Haloperidol Lactate 5 MG/ML VIAL IM SCH (21:00)
[2020-05-22] MEDS ORDERED: Haloperidol Lactate 5 MG/ML VIAL IM PRN (22:46)
[2020-05-22] MEDS: RisperiDONE-M 1 MG TAB.RAPDIS PO SCH (22:47)
[2020-05-23] MEDS ORDERED: Haloperidol Lactate 5 MG/ML VIAL IM PRN (02:12)
[2020-05-23] MEDS ORDERED: RisperiDONE-M 1 MG TAB.RAPDIS PO SCH (09:00)
[2020-05-23] MEDS: lamoTRIgine 25 MG TABLET PO SCH (10:48)
[2020-05-23] MEDS: RisperiDONE-M 1 MG TAB.RAPDIS PO SCH (21:59)
[2020-05-24] MEDS: lamoTRIgine 25 MG TABLET PO SCH (08:49)
[2020-05-24] MEDS: RisperiDONE-M 1 MG TAB.RAPDIS PO SCH (19:58)
[2020-05-25] MEDS: lamoTRIgine 25 MG TABLET PO SCH (08:22)
[2020-05-25] MEDS: RisperiDONE-M 1 MG TAB.RAPDIS PO SCH (20:08)
[2020-05-26] MEDS ORDERED: Haloperidol Lactate 5 MG/ML VIAL IM PRN (00:08)
[2020-05-26] MEDS: lamoTRIgine 25 MG TABLET PO SCH ×2 (07:28→21:19)
[2020-05-26] MEDS: haloperidoL 5 MG TABLET PO PRN (07:28)
[2020-05-26] MEDS: RisperiDONE-M 1 MG TAB.RAPDIS PO SCH (21:19)
[2020-05-27] MEDS ORDERED: *HR* LORazepam 1 MG TABLET PO PRN (07:40)
[2020-05-27] MEDS: lamoTRIgine 25 MG TABLET PO SCH ×2 (08:18→20:45)
[2020-05-27] MEDS: haloperidoL 5 MG TABLET PO PRN (08:19)
[2020-05-27] MEDS ORDERED: OLANZapine 10 MG VIAL IM PRN (08:25)
[2020-05-27] MEDS ORDERED: OLANZapine 5 MG TAB.RAPDIS PO PRN (08:25)
[2020-05-27] MEDS ORDERED: Ibuprofen 600 MG TABLET PO PRN (08:27)
[2020-05-27] MEDS: RisperiDONE-M 1 MG TAB.RAPDIS PO SCH (20:45)
[2020-05-27] MEDS: *HR* LORazepam 0.5 MG TABLET PO SCH (20:45)
[2020-05-28] MEDS: *HR* LORazepam 0.5 MG TABLET PO SCH ×2 (08:20→20:17)
[2020-05-28] MEDS: lamoTRIgine 25 MG TABLET PO SCH ×2 (08:20→20:17)
[2020-05-28] MEDS: RisperiDONE-M 1 MG TAB.RAPDIS PO SCH ×2 (08:21→20:16)
[2020-05-28 09:32] VITALS: BP 116/79
[2020-05-29] MEDS: *HR* LORazepam 0.5 MG TABLET PO SCH (08:20)
[2020-05-29] MEDS: lamoTRIgine 25 MG TABLET PO SCH (08:20)
[2020-05-29] MEDS: RisperiDONE-M 1 MG TAB.RAPDIS PO SCH (08:22)
== END 2020-05-29 11:27 | disposition home or self-care (01) | DRG 885 ==
LOC: EMEROOARM 10:04 → 1ANU 13:00
PROVIDERS: ADMIT Psychiatry & Neurology Psychiatry; ATTEND Psychiatry & Neurology Psychiatry

== ENCOUNTER 2020-10-10 11:44 | Inpatient (IN) ==
[2020-10-10 12:10] LABS: Bilirubin,Urine Negative (Negative); Blood,Urine Negative (Negative); Clarity,Urine Clear (Clear); Color,Urine Light-Yellow (Yellow); Glucose,Urine (UA) Normal (Normal); Ketones,Urine Negative (Negative); Leukocyte Esterase,Urine Negative (Negative); Nitrite,Urine Negative (Negative); Protein,Urine Negative (Neg-Trace); Specific Gravity,Urine 1.009 (1.010-1.025); Urobilinogen,Urine Normal (Normal)
[2020-10-10 12:31] LABS: Amphetamine Screen,Urine Negative ng/mL (Cutoff=1000); Barbiturate Screen,Urine Negative ng/mL (Cutoff=200); Benzodiazepines Screen,Urine Negative ng/mL (Cutoff=200); Cannabinoid Screen,Urine Negative ng/mL (Cutoff = 50); Cocaine Screen,Urine Positive ng/mL (Cutoff= 300); Opiate Screen,Urine Negative ng/mL (Cutoff=300); Phencyclidine Screen,Urine Negative ng/mL (Cutoff=25)
[2020-10-10 12:44] LABS: Basophils % 0.3 %; Eosinophils # 0.1 K/mcL (0.0-0.6); Eosinophils % 1.3 %; Hematocrit 37.1 % (37.5-50.1); Hemoglobin 11.9 g/dL (12.9-16.9); Immature Granulocytes % 0.4 % (0-4); Lymphocytes # 2.1 K/mcL (0.6-4.6); Lymphocytes % 20.3 %; Mean Corpuscular HGB Conc 32.1 g/dL (31.6-35.5); Mean Corpuscular Hemoglobin 30.3 pg (28.0-33.3); Mean Corpuscular Volume 94.4 fL (83.0-100.0); Mean Platelet Volume 9.2 fL (9.4-12.4); Monocytes # 0.8 K/mcL (0.0-1.3); Monocytes % 7.7 %; Neutrophils # 7.2 K/mcL (1.6-8.9); Platelet Count 292 K/mcL (140-400); Red Blood Count 3.93 M/mcL (4.19-5.50); Red Cell Distribution Width 13.6 % (11.5-14.5); White Blood Count 10.3 K/mcL (4.3-11.1)
[2020-10-10 14:06] LABS: Acetaminophen < 10 mcg/mL (10-20); BUN/Creatinine Ratio 8 (6-26); Blood Urea Nitrogen 5 mg/dL (6-20); Calcium 8.8 mg/dL (8.6-10.3); Carbon Dioxide 29 mEq/L (23-29); Chloride 103 mEq/L (98-107); Ethanol < 10 mg/dL (Less than 10); Glucose 107 mg/dL (70-105); Osmolality,Calculated 286 (280-300); Potassium 2.8 mEq/L (3.5-5.1); Salicylate < 2.5 mg/dL (15.0-30.0); Sodium 139 mEq/L (136-145); Thyroid Stimulating Hormone 1.543 mcIU/mL (0.340-5.600); eGFR For African Americans > 60 (> 60); eGFR For Non-African Americans > 60 (> 60)
[2020-10-10] MEDS ORDERED: Potassium Chloride 40 MEQ, Lidocaine 1% 2 ML in 0.9 % Sodium Chloride 500 ML IVPB ONE (14:13)
[2020-10-10] MEDS ORDERED: Acetaminophen 325 MG TABLET PO PRN (14:52)
[2020-10-10] MEDS ORDERED: Naloxone 0.4 MG/ML INJ IVP PRN (14:52)
[2020-10-10] MEDS ORDERED: Ondansetron 4 MG/2 ML VIAL IVP PRN (14:52)
[2020-10-10] MEDS ORDERED: Haloperidol Lactate 5 MG/ML VIAL IVP PRN (14:53)
[2020-10-11] MEDS: *HR* Enoxaparin 40 MG/0.4 ML SYRINGE SQ SCH (05:53)
[2020-10-11 09:18] LABS: BUN/Creatinine Ratio 7 (6-26); Blood Urea Nitrogen 5 mg/dL (6-20); Calcium 8.8 mg/dL (8.6-10.3); Carbon Dioxide 23 mEq/L (23-29); Chloride 107 mEq/L (98-107); Glucose 104 mg/dL (70-105); Osmolality,Calculated 286 (280-300); Potassium 3.1 mEq/L (3.5-5.1); Sodium 139 mEq/L (136-145); eGFR For African Americans > 60 (> 60); eGFR For Non-African Americans > 60 (> 60)
[2020-10-11] MEDS ORDERED: Potassium Chloride Elixir 20 MEQ/15 ML UDC PO ONE (12:58)
[2020-10-11] MEDS ORDERED: *HR* LORazepam 2 MG/ML VIAL IVP ONE ×2 (15:42)
[2020-10-11] MEDS ORDERED: *HR* LORazepam 2 MG/ML VIAL ONE (15:42)
[2020-10-11] MEDS ORDERED: Ziprasidone 10 MG in Water for inj. (sterile) 0.5 ML IM ONE ×2 (15:47→15:49)
[2020-10-11] MEDS: *HR* LORazepam 2 MG/ML VIAL IVP PRN (23:48)
[2020-10-12 00:30] LABS: Adenovirus Not Detected (Not Detect); Bordetella Pertussis Not Detected (Not Detect); Chlamydophila pneumoniae Not Detected (Not Detect); Coronavirus 229E Not Detected (Not Detect); Coronavirus HKU1 Not Detected (Not Detect); Coronavirus NL63 Not Detected (Not Detect); Coronavirus OC43 Not Detected (Not Detect); Human Metapneumovirus Not Detected (Not Detect); Human Rhinovirus/Enterovirus Not Detected (Not Detect); Influenza A Subtype 2009 H1 Not Detected (Not Detect); Influenza B Not Detected (Not Detect); Mycoplasma pneumoniae Not Detected (Not Detect); Parainfluenza Virus 1 Not Detected (Not Detect); Parainfluenza Virus 2 Not Detected (Not Detect); Parainfluenza Virus 3 Not Detected (Not Detect); Parainfluenza Virus 4 Not Detected (Not Detect); Respiratory Syncytial Virus Not Detected (Not Detect); SARS-CoV-2 Not Detected (Not Detect)
[2020-10-12] MEDS: *HR* LORazepam 2 MG/ML VIAL IVP PRN ×3 (05:48→18:00)
[2020-10-12] MEDS: *HR* Enoxaparin 40 MG/0.4 ML SYRINGE SQ SCH (05:48)
[2020-10-13] MEDS: *HR* Enoxaparin 40 MG/0.4 ML SYRINGE SQ SCH (05:27)
[2020-10-13] MEDS: *HR* LORazepam 2 MG/ML VIAL IVP PRN ×4 (06:08→14:44)
[2020-10-14] MEDS: *HR* Enoxaparin 40 MG/0.4 ML SYRINGE SQ SCH (04:47)
[2020-10-14] MEDS: *HR* LORazepam 1 MG TABLET PO PRN ×2 (05:07→08:49)
[2020-10-14] MEDS: risperiDONE 1 MG TABLET PO SCH ×2 (11:53→20:34)
[2020-10-14] MEDS: *HR* LORazepam 1 MG TABLET PO SCH ×2 (14:00→20:34)
[2020-10-14] MEDS ORDERED: Ziprasidone 10 MG in Water for inj. (sterile) 0.5 ML IM ONE (14:17)
[2020-10-14] MEDS: *HR* LORazepam 2 MG/ML VIAL IVP PRN (14:30)
[2020-10-15] MEDS: *HR* Enoxaparin 40 MG/0.4 ML SYRINGE SQ SCH (03:55)
[2020-10-15] MEDS: risperiDONE 1 MG TABLET PO SCH ×2 (08:03→19:54)
[2020-10-15] MEDS: *HR* LORazepam 1 MG TABLET PO SCH ×3 (08:03→19:54)
[2020-10-16 02:53] LABS: Hemoglobin 11.1 g/dL (12.9-16.9); Mean Corpuscular HGB Conc 31.7 g/dL (31.6-35.5); Mean Corpuscular Hemoglobin 30.2 pg (28.0-33.3); Mean Corpuscular Volume 95.1 fL (83.0-100.0); Mean Platelet Volume 8.8 fL (9.4-12.4); Platelet Count 321 K/mcL (140-400); Red Blood Count 3.68 M/mcL (4.19-5.50); Red Cell Distribution Width 14.6 % (11.5-14.5); White Blood Count 9.8 K/mcL (4.3-11.1)
[2020-10-16 03:17] LABS: BUN/Creatinine Ratio 14 (6-26); Blood Urea Nitrogen 12 mg/dL (6-20); Carbon Dioxide 25 mEq/L (23-29); Chloride 107 mEq/L (98-107); Glucose 104 mg/dL (70-105); Osmolality,Calculated 294 (280-300); Potassium 2.6 mEq/L (3.5-5.1); Sodium 142 mEq/L (136-145); eGFR For African Americans > 60 (> 60); eGFR For Non-African Americans > 60 (> 60)
[2020-10-16] MEDS: *HR* LORazepam 2 MG/ML VIAL IVP PRN ×2 (03:23→15:43)
[2020-10-16] MEDS ORDERED: Potassium Chloride 40 MEQ, Lidocaine 1% 2 ML in 0.9 % Sodium Chloride 500 ML IVPB ONE ×3 (03:58→19:47)
[2020-10-16] MEDS: *HR* Enoxaparin 40 MG/0.4 ML SYRINGE SQ SCH (05:56)
[2020-10-16] MEDS: risperiDONE 1 MG TABLET PO SCH ×2 (08:39→20:16)
[2020-10-16] MEDS: *HR* LORazepam 1 MG TABLET PO SCH ×3 (08:39→20:16)
[2020-10-16] MEDS ORDERED: Ziprasidone 20 MG CAPSULE PO PRN (16:26)
[2020-10-16] MEDS ORDERED: Ziprasidone 20 MG in Water for inj. (sterile) 1 ML IM PRN (16:28)
[2020-10-16] MEDS ORDERED: *HR* LORazepam 1 MG TABLET PO PRN (16:33)
[2020-10-17 02:56] LABS: Hematocrit 32.2 % (37.5-50.1); Hemoglobin 10.1 g/dL (12.9-16.9); Mean Corpuscular HGB Conc 31.4 g/dL (31.6-35.5); Mean Corpuscular Hemoglobin 30.4 pg (28.0-33.3); Platelet Count 304 K/mcL (140-400); Red Blood Count 3.32 M/mcL (4.19-5.50); Red Cell Distribution Width 14.9 % (11.5-14.5); White Blood Count 10.3 K/mcL (4.3-11.1)
[2020-10-17 03:05] LABS: BUN/Creatinine Ratio 13 (6-26); Blood Urea Nitrogen 9 mg/dL (6-20); Calcium 7.7 mg/dL (8.6-10.3); Carbon Dioxide 22 mEq/L (23-29); Chloride 110 mEq/L (98-107); Glucose 118 mg/dL (70-105); Osmolality,Calculated 294 (280-300); Sodium 142 mEq/L (136-145); eGFR For African Americans > 60 (> 60); eGFR For Non-African Americans > 60 (> 60)
[2020-10-17] MEDS ORDERED: Potassium Chloride 40 MEQ, Lidocaine 1% 2 ML in 0.9 % Sodium Chloride 500 ML IVPB ONE ×2 (04:00→09:50)
[2020-10-17] MEDS: *HR* Enoxaparin 40 MG/0.4 ML SYRINGE SQ SCH (05:04)
[2020-10-17] MEDS: risperiDONE 1 MG TABLET PO SCH ×2 (09:06→20:30)
[2020-10-17] MEDS: *HR* LORazepam 1 MG TABLET PO SCH ×3 (09:07→20:29)
[2020-10-17 20:27] VITALS: BP 137/81
== END 2020-10-17 21:45 | DRG 641 ==
LOC: EMEROOARM 11:44 → 3BNU 11:44 → SUATTDRO 14:48 → 3BNU 15:13
PROVIDERS: ADMIT Internal Medicine; ATTEND Internal Medicine

== ENCOUNTER 2020-10-17 21:39 | Inpatient (IN) ==
[2020-10-17] MEDS ORDERED: *HR* LORazepam 2 MG/ML VIAL IM PRN (21:56)
[2020-10-17] MEDS ORDERED: hydrOXYzine pamoate 25 MG CAPSULE PO PRN (21:56)
[2020-10-17] MEDS ORDERED: MOM Conc 10 ML UD.LIQ PO PRN (21:56)
[2020-10-17] MEDS ORDERED: Acetaminophen 325 MG TABLET PO PRN (21:56)
[2020-10-17] MEDS ORDERED: *HR* LORazepam 1 MG TABLET PO PRN (21:56)
[2020-10-17] MEDS ORDERED: Mag Hydrox/Al Hydrox/Simeth 30 ML UDC PO PRN (21:56)
[2020-10-17] MEDS ORDERED: QUEtiapine Fumarate 25 MG TABLET PO PRN (21:56)
[2020-10-18] MEDS: Magnesium Oxide 400 MG TABLET PO SCH (08:50)
[2020-10-18] MEDS: risperiDONE 1 MG TABLET PO SCH ×2 (08:51→21:02)
[2020-10-18] MEDS ORDERED: *HR* LORazepam 1 MG TABLET PO SCH (09:00)
[2020-10-18] MEDS: *HR* LORazepam 0.5 MG TABLET PO SCH ×2 (15:20→21:02)
[2020-10-19] MEDS ORDERED: FluPHENAZine 25 MG/10 ML VIAL IM PRN (04:09)
[2020-10-19] MEDS: risperiDONE 1 MG TABLET PO SCH ×2 (09:36→20:14)
[2020-10-19] MEDS: Magnesium Oxide 400 MG TABLET PO SCH (09:36)
[2020-10-19] MEDS: *HR* LORazepam 0.5 MG TABLET PO SCH ×3 (09:36→20:14)
[2020-10-20] MEDS: *HR* LORazepam 0.5 MG TABLET PO SCH ×3 (08:49→20:51)
[2020-10-20] MEDS: Magnesium Oxide 400 MG TABLET PO SCH (08:49)
[2020-10-20] MEDS: RisperiDONE-M 1 MG TAB.RAPDIS PO SCH ×2 (08:50→20:53)
[2020-10-21] MEDS: Magnesium Oxide 400 MG TABLET PO SCH (08:06)
[2020-10-21] MEDS: RisperiDONE-M 1 MG TAB.RAPDIS PO SCH ×2 (08:06→20:03)
[2020-10-21] MEDS: *HR* LORazepam 0.5 MG TABLET PO SCH ×3 (08:06→20:04)
[2020-10-22] MEDS: RisperiDONE-M 1 MG TAB.RAPDIS PO SCH (08:59)
[2020-10-22] MEDS: Magnesium Oxide 400 MG TABLET PO SCH (08:59)
[2020-10-22] MEDS: *HR* LORazepam 0.5 MG TABLET PO SCH (09:00)
[2020-10-22 09:13] VITALS: BP 110/75
== END 2020-10-22 11:55 | disposition other institution (70) | DRG 885 ==
LOC: 1ANU 21:39
PROVIDERS: ADMIT Psychiatry & Neurology Psychiatry; ATTEND Psychiatry & Neurology Psychiatry

== ENCOUNTER 2021-12-14 18:09 | Inpatient (IN) ==
[2021-12-14 18:41] LABS: Amorphous Sediment,Urine Few per hpf (None-Few); Bilirubin,Urine Negative (Negative); Blood,Urine Negative (Negative); Clarity,Urine Turbid (Clear); Color,Urine Light-Yellow (Yellow); Glucose,Urine (UA) Normal (Normal); Ketones,Urine 10 mg/dL (Negative); Leukocyte Esterase,Urine Negative (Negative); Mucus,Urine Moderate per lpf (None-Few); Nitrite,Urine Negative (Negative); Protein,Urine 30 mg/dL (Neg-Trace); Specific Gravity,Urine 1.019 (1.010-1.025); Squamous Epithelial Cell,Urine Few per hpf (None-Few); Urobilinogen,Urine Normal (Normal); WBC,Urine 0-3 per hpf (0-3)
[2021-12-14 18:53] LABS: Basophils % 0.4 %; Eosinophils # 0.4 K/mcL (0.0-0.6); Eosinophils % 3.6 %; Hematocrit 44.2 % (37.5-50.1); Hemoglobin 14.1 g/dL (12.9-16.9); Immature Granulocytes % 0.3 % (0-4); Lymphocytes # 2.7 K/mcL (0.6-4.6); Lymphocytes % 25.2 %; Mean Corpuscular HGB Conc 31.9 g/dL (31.6-35.5); Mean Corpuscular Hemoglobin 29.8 pg (28.0-33.3); Mean Corpuscular Volume 93.4 fL (83.0-100.0); Mean Platelet Volume 8.7 fL (9.4-12.4); Monocytes # 0.7 K/mcL (0.0-1.3); Monocytes % 6.1 %; Neutrophils # 6.9 K/mcL (1.6-8.9); Platelet Count 338 K/mcL (140-400); Red Blood Count 4.73 M/mcL (4.19-5.50); Red Cell Distribution Width 13.3 % (11.5-14.5); Segmented Neutrophils % 64.4 %; White Blood Count 10.7 K/mcL (4.3-11.1)
[2021-12-14 19:05] LABS: Amphetamine Screen,Urine Positive ng/mL (Cutoff=1000); Barbiturate Screen,Urine Negative ng/mL (Cutoff=200); Benzodiazepines Screen,Urine Negative ng/mL (Cutoff=200); Cannabinoid Screen,Urine Negative ng/mL (Cutoff = 50); Cocaine Screen,Urine Negative ng/mL (Cutoff= 300); Opiate Screen,Urine Negative ng/mL (Cutoff=300); Phencyclidine Screen,Urine Negative ng/mL (Cutoff=25)
[2021-12-14 19:06] LABS: Acetaminophen < 10 mcg/mL (10-20); BUN/Creatinine Ratio 9 (6-26); Blood Urea Nitrogen 8 mg/dL (8-23); Calcium 9.5 mg/dL (8.6-10.3); Chloride 99 mEq/L (98-107); Ethanol < 10 mg/dL (Less than 10); Glucose 101 mg/dL (70-105); Osmolality,Calculated 288 (280-300); Potassium 3.3 mEq/L (3.5-5.1); Salicylate < 2.5 mg/dL (15.0-30.0); Sodium 140 mEq/L (136-145); eGFR For African Americans > 60 (> 60); eGFR For Non-African Americans > 60 (> 60)
[2021-12-14 19:15] LABS: Carbon Dioxide 30 mEq/L (23-29)
[2021-12-14 20:44] LABS: Influenza A PCR Negative (Negative); Influenza B PCR Negative (Negative); Resp. Syncytial Virus PCR Negative (Negative)
[2021-12-14 20:49] LABS: SARS-CoV-2 by PCR (In House) Negative (Negative)
[2021-12-14] MEDS ORDERED: *HR* LORazepam 2 MG/ML VIAL IM ONE (23:54)
[2021-12-15] MEDS ORDERED: *HR* LORazepam 2 MG/ML VIAL IM ONE (17:15)
[2021-12-16] MEDS ORDERED: *HR* LORazepam 1 MG TABLET PO PRN (15:28)
[2021-12-16] MEDS ORDERED: hydrOXYzine pamoate 25 MG CAPSULE PO PRN (15:28)
[2021-12-16] MEDS ORDERED: QUEtiapine Fumarate 25 MG TABLET PO PRN (15:28)
[2021-12-16] MEDS ORDERED: Acetaminophen 325 MG TABLET PO PRN (15:28)
[2021-12-16] MEDS ORDERED: *HR* LORazepam 2 MG/ML VIAL IM PRN (15:28)
[2021-12-16] MEDS ORDERED: chlorproMAZINE 25 MG TABLET PO PRN (15:29)
[2021-12-16] MEDS ORDERED: Mag Hydrox/Al Hydrox/Simeth 30 ML UDC PO PRN (20:12)
[2021-12-16] MEDS ORDERED: MOM Conc 10 ML UD.LIQ PO PRN (20:12)
[2021-12-17] MEDS: OLANZapine 10 MG TAB.RAPDIS PO SCH (21:00)
[2021-12-18] MEDS: OLANZapine 10 MG TAB.RAPDIS PO SCH ×3 (09:29→21:50)
[2021-12-19] MEDS: OLANZapine 10 MG TAB.RAPDIS PO SCH ×2 (10:14→23:03)
[2021-12-20] MEDS: OLANZapine 10 MG TAB.RAPDIS PO SCH ×2 (10:29→22:31)
[2021-12-21] MEDS: OLANZapine 10 MG TAB.RAPDIS PO SCH ×2 (09:02→21:48)
[2021-12-22] MEDS: OLANZapine 10 MG TAB.RAPDIS PO SCH ×2 (09:22→22:45)
[2021-12-23] MEDS: OLANZapine 10 MG TAB.RAPDIS PO SCH ×2 (08:39→21:08)
[2021-12-24] MEDS: OLANZapine 10 MG TAB.RAPDIS PO SCH ×2 (09:44→21:12)
[2021-12-24] MEDS ORDERED: OLANZapine 10 MG VIAL IM PRN ×2 (13:39→15:10)
[2021-12-24] MEDS ORDERED: OLANZapine 5 MG TAB.RAPDIS PO ONE (13:42)
[2021-12-25] MEDS: OLANZapine 10 MG TAB.RAPDIS PO SCH ×2 (08:13→20:34)
[2021-12-25] MEDS: *HR* LORazepam 2 MG/ML VIAL IM PRN (11:35)
[2021-12-25] MEDS: ChlorproMAZINE 25 MG/ML AMPUL IM PRN (11:35)
[2021-12-26] MEDS: OLANZapine 10 MG TAB.RAPDIS PO SCH ×2 (07:25→20:38)
[2021-12-27] MEDS: OLANZapine 10 MG TAB.RAPDIS PO SCH ×2 (10:38→22:07)
[2021-12-27] MEDS: *HR* LORazepam 2 MG/ML VIAL IM PRN ×2 (10:38→22:08)
[2021-12-27] MEDS: ChlorproMAZINE 25 MG/ML AMPUL IM PRN ×2 (10:39→22:07)
[2021-12-28] MEDS: OLANZapine 10 MG TAB.RAPDIS PO SCH ×2 (08:23→19:59)
[2021-12-28] MEDS: lamoTRIgine 25 MG TABLET PO SCH (19:58)
[2021-12-29] MEDS: OLANZapine 10 MG TAB.RAPDIS PO SCH ×2 (08:17→20:24)
[2021-12-29] MEDS: lamoTRIgine 25 MG TABLET PO SCH (20:24)
[2021-12-30 08:54] VITALS: O2SAT 98
[2021-12-30] MEDS: OLANZapine 10 MG TAB.RAPDIS PO SCH ×2 (09:17→21:24)
[2021-12-30] MEDS: lamoTRIgine 25 MG TABLET PO SCH (21:24)
[2021-12-30 22:01] VITALS: BP 129/79; PULSE 84; TEMP 98.4
[2021-12-31] MEDS: OLANZapine 10 MG TAB.RAPDIS PO SCH ×2 (08:30→20:05)
[2021-12-31] MEDS: lamoTRIgine 25 MG TABLET PO SCH (20:05)
[2022-01-01] MEDS: OLANZapine 10 MG TAB.RAPDIS PO SCH (08:41)
== END 2022-01-01 13:30 | disposition home or self-care (01) | DRG 885 ==
LOC: EMEROOARM 18:09 → 1ANU 12-16 14:13
PROVIDERS: ADMIT Psychiatry & Neurology Psychiatry; ATTEND Psychiatry & Neurology Psychiatry

== ENCOUNTER 2022-04-07 14:24 | Inpatient (IN) ==
[2022-04-07] MEDS ORDERED: Ziprasidone 20 MG/VIAL VIAL IM ONE (14:33)
[2022-04-07 15:39] LABS: Basophils % 0.2 %; Eosinophils # 0.2 K/mcL (0.0-0.6); Eosinophils % 1.6 %; Hematocrit 38.9 % (37.5-50.1); Hemoglobin 12.8 g/dL (12.9-16.9); Immature Granulocytes % 0.4 % (0-4); Lymphocytes # 1.5 K/mcL (0.6-4.6); Lymphocytes % 12.2 %; Mean Corpuscular HGB Conc 32.9 g/dL (31.6-35.5); Mean Corpuscular Hemoglobin 29.8 pg (28.0-33.3); Mean Corpuscular Volume 90.7 fL (83.0-100.0); Mean Platelet Volume 8.4 fL (9.4-12.4); Monocytes # 0.7 K/mcL (0.0-1.3); Monocytes % 5.8 %; Neutrophils # 9.8 K/mcL (1.6-8.9); Platelet Count 256 K/mcL (140-400); Red Blood Count 4.29 M/mcL (4.19-5.50); Red Cell Distribution Width 12.5 % (11.5-14.5); Segmented Neutrophils % 79.8 %; White Blood Count 12.2 K/mcL (4.3-11.1)
[2022-04-07 15:52] LABS: Bilirubin,Urine Negative (Negative); Blood,Urine Negative (Negative); Clarity,Urine Clear (Clear); Color,Urine Colorless (Yellow); Glucose,Urine (UA) Normal (Normal); Ketones,Urine Negative (Negative); Leukocyte Esterase,Urine Negative (Negative); Nitrite,Urine Negative (Negative); Protein,Urine Negative (Neg-Trace); Specific Gravity,Urine 1.006 (1.010-1.025); Urobilinogen,Urine Normal (Normal)
[2022-04-07 16:02] LABS: Acetaminophen < 10 mcg/mL (10-20); Alanine Aminotransferase 15 Units/L (7-52); Albumin 4.3 g/dL (3.5-5.7); Albumin/Globulin Ratio 1.8 (1.1-2.2); Alkaline Phosphatase 50 Units/L (34-104); Aspartate Amino Transferase 23 Units/L (13-39); BUN/Creatinine Ratio 10 (6-26); Bilirubin,Direct 0.4 mg/dL (0.0-0.2); Bilirubin,Indirect 1.1 mg/dL (0.0-1.0); Bilirubin,Total 1.5 mg/dL (0.3-1.0); Blood Urea Nitrogen 8 mg/dL (8-23); Calcium 9.2 mg/dL (8.6-10.3); Carbon Dioxide 27 mEq/L (23-29); Chloride 103 mEq/L (98-107); Ethanol < 10 mg/dL (Less than 10); Globulin 2.4 g/dL (2.4-3.5); Glucose 127 mg/dL (70-105); Osmolality,Calculated 290 (280-300); Potassium 2.5 mEq/L (3.5-5.1); Salicylate < 2.5 mg/dL (15.0-30.0); Sodium 140 mEq/L (136-145); Total Protein 6.7 g/dL (6.4-8.9); eGFR For African Americans > 60 (> 60); eGFR For Non-African Americans > 60 (> 60)
[2022-04-07 16:10] LABS: Thyroid Stimulating Hormone 2.003 mcIU/mL (0.340-5.600)
[2022-04-07 16:16] LABS: Amphetamine Screen,Urine Positive ng/mL (Cutoff=1000); Barbiturate Screen,Urine Negative ng/mL (Cutoff=200); Benzodiazepines Screen,Urine Negative ng/mL (Cutoff=200); Cannabinoid Screen,Urine Negative ng/mL (Cutoff = 50); Cocaine Screen,Urine Negative ng/mL (Cutoff= 300); Opiate Screen,Urine Negative ng/mL (Cutoff=300); Phencyclidine Screen,Urine Negative ng/mL (Cutoff=25)
[2022-04-07 17:08] LABS: Magnesium 1.8 mg/dL (1.6-2.6)
[2022-04-07 18:03] LABS: Influenza A PCR Negative (Negative); Influenza B PCR Negative (Negative); Resp. Syncytial Virus PCR Negative (Negative)
[2022-04-07 18:04] LABS: SARS-CoV-2 by PCR (In House) Negative (Negative)
[2022-04-07] MEDS ORDERED: 0.9 % Sodium Chloride 500 ML ONE (19:22)
[2022-04-09] MEDS ORDERED: lamoTRIgine 25 MG TABLET PO SCH (22:30)
[2022-04-09] MEDS: OLANZapine 10 MG TAB.RAPDIS PO SCH (23:02)
[2022-04-10] MEDS: OLANZapine 10 MG TAB.RAPDIS PO SCH ×3 (09:03→20:45)
[2022-04-10] MEDS ORDERED: *HR* LORazepam 1 MG TABLET PO PRN (13:36)
[2022-04-10] MEDS ORDERED: hydrOXYzine pamoate 25 MG CAPSULE PO PRN (13:36)
[2022-04-10] MEDS ORDERED: Acetaminophen 325 MG TABLET PO PRN (13:36)
[2022-04-10] MEDS ORDERED: QUEtiapine Fumarate 25 MG TABLET PO PRN (13:36)
[2022-04-10] MEDS ORDERED: *HR* LORazepam 2 MG/ML VIAL IM PRN (13:36)
[2022-04-10] MEDS ORDERED: ChlorproMAZINE 25 MG/ML AMPUL IM PRN (13:38)
[2022-04-10] MEDS ORDERED: chlorproMAZINE 25 MG TABLET PO PRN (13:39)
[2022-04-10] MEDS ORDERED: Mag Hydrox/Al Hydrox/Simeth 30 ML UDC PO PRN (14:19)
[2022-04-10] MEDS ORDERED: MOM Conc 10 ML UD.LIQ PO PRN (14:19)
[2022-04-10] MEDS: lamoTRIgine 25 MG TABLET PO SCH (20:45)
[2022-04-11] MEDS: OLANZapine 10 MG TAB.RAPDIS PO SCH (12:00)
[2022-04-11] MEDS: lamoTRIgine 25 MG TABLET PO SCH (20:19)
[2022-04-11] MEDS ORDERED: OLANZapine 10 MG TAB.RAPDIS PO SCH (21:00)
[2022-04-12 09:29] VITALS: BP 124/83; PULSE 70; TEMP 97.6; O2SAT 98
== END 2022-04-12 12:10 | disposition home or self-care (01) | DRG 885 ==
LOC: EMEROOARM 14:24 → 1ANU 04-10 12:36
PROVIDERS: ADMIT Psychiatry & Neurology Psychiatry; ATTEND Psychiatry & Neurology Psychiatry

== ENCOUNTER 2022-07-30 13:36 | Inpatient (IN) ==
[2022-07-30] MEDS ORDERED: Ziprasidone 20 MG, Closed System Device IM Kit 1 EACH in Water for inj. (sterile) 1 ML IM ONE (13:45)
[2022-07-30] MEDS ORDERED: Water for inj. (sterile) 10 ML ONE (13:55)
[2022-07-30] MEDS ORDERED: Ziprasidone 20 MG/VIAL VIAL IM ONE (13:55)
[2022-07-30 14:23] LABS: Basophils % 0.3 %; Eosinophils # 0.1 K/mcL (0.0-0.6); Eosinophils % 0.5 %; Hematocrit 40.1 % (37.5-50.1); Hemoglobin 13.5 g/dL (12.9-16.9); Immature Granulocytes % 0.2 % (0-4); Lymphocytes # 1.5 K/mcL (0.6-4.6); Lymphocytes % 15.2 %; Mean Corpuscular HGB Conc 33.7 g/dL (31.6-35.5); Mean Corpuscular Hemoglobin 30.1 pg (28.0-33.3); Mean Corpuscular Volume 89.5 fL (83.0-100.0); Mean Platelet Volume 9.1 fL (9.4-12.4); Monocytes % 9.5 %; Neutrophils # 7.4 K/mcL (1.6-8.9); Platelet Count 315 K/mcL (140-400); Red Blood Count 4.48 M/mcL (4.19-5.50); Red Cell Distribution Width 12.5 % (11.5-14.5); Segmented Neutrophils % 74.3 %
[2022-07-30 14:38] LABS: Acetaminophen < 10 mcg/mL (10-20); BUN/Creatinine Ratio 14 (6-26); Blood Urea Nitrogen 11 mg/dL (8-23); Calcium 9.8 mg/dL (8.6-10.3); Carbon Dioxide 25 mEq/L (23-29); Chloride 102 mEq/L (98-107); Chol/HDL Ratio 1.4 (0-4.9); Cholesterol 110 mg/dL (< 200); Ethanol < 10 mg/dL (Less than 10); Glucose 134 mg/dL (70-105); HDL Cholesterol 78 mg/dL (40-59); LDL Cholesterol,Calculated 22 mg/dL (< 100); Osmolality,Calculated 287 (280-300); Potassium 3.7 mEq/L (3.5-5.1); Salicylate < 2.5 mg/dL (15.0-30.0); Sodium 138 mEq/L (136-145); Triglycerides 51 mg/dL (< 150)
[2022-07-30 15:07] LABS: Bilirubin,Urine Negative (Negative); Blood,Urine Negative (Negative); Clarity,Urine Clear (Clear); Color,Urine Yellow (Yellow); Glucose,Urine (UA) Normal (Normal); Granular Casts,Urine Few per lpf (None Seen); Hyaline Casts,Urine Few per lpf (None Seen); Ketones,Urine 40 mg/dL (Negative); Leukocyte Esterase,Urine Negative (Negative); Mucus,Urine Few per lpf (None-Few); Nitrite,Urine Negative (Negative); Protein,Urine 30 mg/dL (Neg-Trace); RBC,Urine 0-3 per hpf (0-3); Renal Epithelial Cells,Urine Few per hpf (None-Few); Specific Gravity,Urine 1.024 (1.010-1.025); Squamous Epithelial Cell,Urine Few per hpf (None-Few); Transitional Epi Cells,Urine Few per hpf (None-Few); Urobilinogen,Urine Normal (Normal); WBC,Urine 0-3 per hpf (0-3)
[2022-07-30 15:17] LABS: Estimated Average Glucose 123 mg/dl; Hemoglobin A1C 5.9 %
[2022-07-30 15:41] LABS: Amphetamine Screen,Urine Positive ng/mL (Cutoff=1000); Barbiturate Screen,Urine Negative ng/mL (Cutoff=200); Benzodiazepines Screen,Urine Negative ng/mL (Cutoff=200); Cannabinoid Screen,Urine Negative ng/mL (Cutoff = 50); Cocaine Screen,Urine Positive ng/mL (Cutoff= 300); Opiate Screen,Urine Negative ng/mL (Cutoff=300); Phencyclidine Screen,Urine Negative ng/mL (Cutoff=25)
[2022-07-31] MEDS ORDERED: *HR* LORazepam 1 MG TABLET PO ONE ×3 (00:15→20:54)
[2022-07-31] MEDS ORDERED: Ziprasidone 10 MG, Closed System Device IM Kit 1 EACH in Water for inj. (sterile) 0.5 ML IM ONE (01:12)
[2022-07-31] MEDS ORDERED: Ziprasidone 20 MG/VIAL VIAL IM ONE (01:14)
[2022-07-31] MEDS ORDERED: Water for inj. (sterile) 10 ML ONE (01:14)
[2022-08-01] MEDS ORDERED: *HR* LORazepam 1 MG TABLET PO ONE (16:59)
[2022-08-01] MEDS: lamoTRIgine 25 MG TABLET PO SCH (21:28)
[2022-08-01] MEDS: OLANZapine 10 MG TAB.RAPDIS PO SCH (21:28)
[2022-08-02] MEDS ORDERED: *HR* LORazepam 1 MG TABLET PO ONE (12:19)
[2022-08-02] MEDS: OLANZapine 10 MG TAB.RAPDIS PO SCH (20:55)
[2022-08-02] MEDS: lamoTRIgine 25 MG TABLET PO SCH (20:55)
[2022-08-02 22:06] VITALS: BP 113/71; PULSE 81; TEMP 97.9; O2SAT 93
[2022-08-03] MEDS ORDERED: Acetaminophen 325 MG TABLET PO PRN (12:25)
[2022-08-03] MEDS ORDERED: *HR* LORazepam 2 MG/ML VIAL IM PRN (12:25)
[2022-08-03] MEDS ORDERED: hydrOXYzine pamoate 25 MG CAPSULE PO PRN (12:25)
[2022-08-03] MEDS ORDERED: traZODone 50 MG TABLET PO PRN (12:25)
[2022-08-03] MEDS ORDERED: *HR* LORazepam 1 MG TABLET PO PRN (12:25)
[2022-08-03] MEDS ORDERED: OLANZapine 5 MG TAB.RAPDIS PO PRN (12:29)
[2022-08-03] MEDS ORDERED: Ziprasidone 10 MG, Closed System Device IM Kit 1 EACH in Water for inj. (sterile) 0.5 ML IM PRN (12:31)
[2022-08-03] MEDS: OLANZapine 10 MG TAB.RAPDIS PO SCH ×2 (13:32→21:43)
[2022-08-03] MEDS: lamoTRIgine 25 MG TABLET PO SCH (21:43)
[2022-08-04] MEDS: OLANZapine 10 MG TAB.RAPDIS PO SCH ×2 (09:46→21:07)
[2022-08-04] MEDS: lamoTRIgine 25 MG TABLET PO SCH (21:07)
[2022-08-05] MEDS: OLANZapine 10 MG TAB.RAPDIS PO SCH ×2 (08:39→21:16)
[2022-08-05] MEDS: lamoTRIgine 25 MG TABLET PO SCH (21:16)
[2022-08-06] MEDS: OLANZapine 10 MG TAB.RAPDIS PO SCH ×2 (09:26→20:23)
[2022-08-06] MEDS: lamoTRIgine 25 MG TABLET PO SCH (20:23)
[2022-08-06] MEDS ORDERED: lamoTRIgine 25 MG TABLET PO SCH (21:00)
[2022-08-07] MEDS: OLANZapine 10 MG TAB.RAPDIS PO SCH ×2 (08:29→21:12)
[2022-08-07] MEDS: lamoTRIgine 25 MG TABLET PO SCH (21:12)
[2022-08-08] MEDS: OLANZapine 10 MG TAB.RAPDIS PO SCH ×2 (09:10→20:56)
[2022-08-08] MEDS: lamoTRIgine 25 MG TABLET PO SCH (20:56)
[2022-08-09] MEDS: OLANZapine 10 MG TAB.RAPDIS PO SCH ×2 (08:38→20:36)
[2022-08-09] MEDS: lamoTRIgine 25 MG TABLET PO SCH (20:36)
[2022-08-10] MEDS: OLANZapine 10 MG TAB.RAPDIS PO SCH ×2 (08:16→20:32)
[2022-08-10] MEDS: lamoTRIgine 25 MG TABLET PO SCH (20:31)
[2022-08-11] MEDS: OLANZapine 10 MG TAB.RAPDIS PO SCH (08:30)
== END 2022-08-11 14:37 | disposition home or self-care (01) | DRG 885 ==
LOC: EMEROOARM 13:36 → 1ANU 08-03 12:38
PROVIDERS: ADMIT Psychiatry & Neurology Neurology; ATTEND Psychiatry & Neurology Neurology

== ENCOUNTER 2022-08-18 20:09 | Inpatient (IN) ==
[2022-08-18 20:59] LABS: Bilirubin,Urine Negative (Negative); Blood,Urine Negative (Negative); Clarity,Urine Clear (Clear); Color,Urine Yellow (Yellow); Glucose,Urine (UA) Normal (Normal); Ketones,Urine Trace mg/dL (Negative); Leukocyte Esterase,Urine Negative (Negative); Nitrite,Urine Negative (Negative); PH,Urine 5.5 pH Units (5.0-8.0); Protein,Urine Trace mg/dL (Neg-Trace); Specific Gravity,Urine 1.028 (1.010-1.025)
[2022-08-18 21:00] LABS: Basophils % 0.3 %; Eosinophils # 0.3 K/mcL (0.0-0.6); Eosinophils % 5.3 %; Hematocrit 44.7 % (37.5-50.1); Hemoglobin 14.5 g/dL (12.9-16.9); Immature Granulocytes % 0.3 % (0-4); Lymphocytes # 2.2 K/mcL (0.6-4.6); Lymphocytes % 33.8 %; Mean Corpuscular HGB Conc 32.4 g/dL (31.6-35.5); Mean Corpuscular Volume 92.5 fL (83.0-100.0); Mean Platelet Volume 8.7 fL (9.4-12.4); Monocytes # 0.4 K/mcL (0.0-1.3); Monocytes % 6.3 %; Neutrophils # 3.5 K/mcL (1.6-8.9); Platelet Count 345 K/mcL (140-400); Red Blood Count 4.83 M/mcL (4.19-5.50); Red Cell Distribution Width 13.4 % (11.5-14.5); White Blood Count 6.4 K/mcL (4.3-11.1)
[2022-08-18 21:09] LABS: Amphetamine Screen,Urine Negative ng/mL (Cutoff=1000); Barbiturate Screen,Urine Negative ng/mL (Cutoff=200); Benzodiazepines Screen,Urine Negative ng/mL (Cutoff=200); Cannabinoid Screen,Urine Negative ng/mL (Cutoff = 50); Cocaine Screen,Urine Negative ng/mL (Cutoff= 300); Opiate Screen,Urine Negative ng/mL (Cutoff=300); Phencyclidine Screen,Urine Negative ng/mL (Cutoff=25)
[2022-08-18 21:20] LABS: Acetaminophen < 10 mcg/mL (10-20); BUN/Creatinine Ratio 12 (6-26); Blood Urea Nitrogen 11 mg/dL (8-23); Calcium 9.8 mg/dL (8.6-10.3); Carbon Dioxide 27 mEq/L (23-29); Chloride 107 mEq/L (98-107); Ethanol 35 mg/dL (Less than 10); Glucose 83 mg/dL (70-105); Osmolality,Calculated 279 (280-300); Potassium 3.6 mEq/L (3.5-5.1); Salicylate < 2.5 mg/dL (15.0-30.0); Sodium 135 mEq/L (136-145)
[2022-08-18 21:35] LABS: Influenza A PCR Negative (Negative); Influenza B PCR Negative (Negative); Resp. Syncytial Virus PCR Negative (Negative); SARS-CoV-2 by PCR (In House) Negative (Negative)
[2022-08-19] MEDS ORDERED: *HR* LORazepam 2 MG/ML VIAL IM PRN (00:43)
[2022-08-19] MEDS ORDERED: QUEtiapine Fumarate 25 MG TABLET PO PRN (00:43)
[2022-08-19] MEDS ORDERED: *HR* LORazepam 1 MG TABLET PO PRN (00:43)
[2022-08-19] MEDS ORDERED: Acetaminophen 325 MG TABLET PO PRN (00:43)
[2022-08-19] MEDS ORDERED: hydrOXYzine pamoate 25 MG CAPSULE PO PRN (00:43)
[2022-08-19] MEDS ORDERED: Ziprasidone 20 MG, Closed System Device IM Kit 1 EACH in Water for inj. (sterile) 1 ML IM PRN ×2 (00:44→11:30)
[2022-08-19] MEDS ORDERED: Ziprasidone 20 MG CAPSULE PO PRN (00:44)
[2022-08-19] MEDS: OLANZapine 10 MG TAB.RAPDIS PO SCH ×2 (13:42→20:36)
[2022-08-19] MEDS: lamoTRIgine 25 MG TABLET PO SCH (20:36)
[2022-08-20] MEDS: OLANZapine 10 MG TAB.RAPDIS PO SCH ×2 (10:15→21:44)
[2022-08-20] MEDS ORDERED: Mag Hydrox/Al Hydrox/Simeth 30 ML UDC PO PRN (11:46)
[2022-08-20] MEDS ORDERED: MOM Conc 10 ML UD.LIQ PO PRN (11:46)
[2022-08-20] MEDS: lamoTRIgine 25 MG TABLET PO SCH (21:44)
[2022-08-21] MEDS: OLANZapine 10 MG TAB.RAPDIS PO SCH ×2 (09:23→21:32)
[2022-08-21] MEDS: lamoTRIgine 25 MG TABLET PO SCH (21:32)
[2022-08-22] MEDS: OLANZapine 10 MG TAB.RAPDIS PO SCH ×2 (08:27→21:31)
[2022-08-22] MEDS: lamoTRIgine 25 MG TABLET PO SCH (21:30)
[2022-08-23] MEDS: OLANZapine 10 MG TAB.RAPDIS PO SCH ×2 (08:03→21:24)
[2022-08-23] MEDS: lamoTRIgine 25 MG TABLET PO SCH (21:24)
[2022-08-24] MEDS: OLANZapine 10 MG TAB.RAPDIS PO SCH ×2 (08:25→21:14)
[2022-08-24 15:05] LABS: Influenza A PCR Negative (Negative); Influenza B PCR Negative (Negative); Resp. Syncytial Virus PCR Negative (Negative)
[2022-08-24 15:11] LABS: SARS-CoV-2 by PCR (In House) Negative (Negative)
[2022-08-24] MEDS: lamoTRIgine 25 MG TABLET PO SCH (21:14)
[2022-08-24 21:36] VITALS: BP 102/66; PULSE 73; TEMP 98.3; O2SAT 95
[2022-08-25] MEDS: OLANZapine 10 MG TAB.RAPDIS PO SCH (09:22)
== END 2022-08-25 14:38 | disposition home or self-care (01) | DRG 885 ==
LOC: EMEROOARM 20:09 → 1ANU 08-19 00:40
PROVIDERS: ADMIT Psychiatry & Neurology Psychiatry; ATTEND Psychiatry & Neurology Psychiatry